=== PATIENT | male | born 1945 | race African-American/Black ===

== ENCOUNTER 2017-06-21 14:09 | Inpatient (IN) | payer MEDICARE, OTHER ==
[2017-06-21] MEDS ORDERED: NS 0.9% 1000 ML* 1,000 ML IV ONE (16:28)
[2017-06-21 16:55] LABS: Hematocrit 36 % (42-52); Hemoglobin 11.8 g/dl (14.0-18.0); Mean Corpuscular HGB Conc 33 g/dl (31-36); Mean Corpuscular Hemoglobin 31 pg (27-31); Mean Corpuscular Volume 91 fL (80-94); Mean Platelet Volume 9 um3 (7.4-10.4); Red Blood Count 3.88 10^6/ul (4.0-5.4); Red Cell Distribution Width 14 % (10.5-15); White Blood Count 9.6 10^3/ul (3.5-10.8)
[2017-06-21 17:00] LABS: Urine Bacteria Absent (Absent); Urine Bilirubin Negative (Negative); Urine Glucose 1+(50 mg/dL) (Negative); Urine Nitrite Negative (Negative)
[2017-06-21 17:11] LABS: Albumin 3.6 g/dL (3.2-5.2); BUN/Creatinine Ratio 10.3 (8-20); C Reactive Protein 64.5 mg/L (< 5.00); Calcium 9.7 mg/dL (8.6-10.3); EGFR African American 66.1 (>60); EGFR Non-African American 51.4 (>60); Globulin 3.5 g/dL (2-4); Magnesium 2.2 mg/dL (1.9-2.7); Potassium 3.6 mmol/L (3.5-5.0); Total Bilirubin 0.5 mg/dL (0.2-1.0); Total Protein 7.1 g/dL (6.4-8.9)
[2017-06-21 17:12] LABS: Troponin I 0.01 ng/mL (<0.04)
[2017-06-21 17:40] LABS: TSH (Thyroid Stimulating Horm) 2.04 mcIU/mL (0.34-5.60)
[2017-06-21] MEDS ORDERED: Iodixanol* (CONTRAST) 320 MG/ML 100 ML SDV IV ONE (17:50)
--- NOTE | 2017-06-21 18:49 | ED ---
Lisa Atwood Edward, scribed for Jian Rothman MD on 06/21/17 at 1637 . Abdominal Pain/Male - HPI Summary HPI Summary: 71 y/o male presents to ED c/o ABD pain starting yesterday. The pain is located in the suprapubic region and the LUQ. It is described as a burning pain and rated mild in severity. The pain is aggravated when he tries to move his bowels. Associated sx: slight nausea, mild CP in the epigastric region described as a burning sensation. Pt also c/o constipation for the past 3-4 days and had small amounts of diarrhea yesterday and this morning. Denies SOB, back pain, fevers/chills. SHx hip replacement, knee replacement. PMHx HTN, DM, GERD, pancreatitis. - History of Current Complaint Chief Complaint: EDAbdPain Stated Complaint: ABD PAIN/CONSTIPATION 3-4 DAYS Time Seen by Provider: 06/21/17 16:28 Hx Obtained From: Patient Onset/Duration: Lasting Days - Yesterday, Still Present Severity Currently: Mild Pain Intensity: 5 Pain Scale Used: 0-10 Numeric Location: Discrete At: LUQ, Suprapubic Character: Burning Aggravating Factor(s): Other: - Bowel movements Associated Signs And Symptoms: Positive: Chest Pain, Constipation, Nausea, Diarrhea. Negative: Other - No SOB - Allergies/Home Medications Allergies/Adverse Reactions: Allergies Allergy/AdvReac Type Severity Reaction Status Date / Time Oxycodone [From Percocet] Allergy Itching Verified 06/21/17 16:54 PMH/Surg Hx/FS Hx/Imm Hx Previously Healthy: No Endocrine/Hematology History: Reports: Hx Diabetes Cardiovascular History: Reports: Hx Hypertension GI History: Reports: Other GI Disorders - Pancreatitis - Surgical History Surgery Procedure, Year, and Place: Hip replacement, knee replacement, rotator cuff repair Infectious Disease History: Denies: Traveled Outside the [place] in Last 30 Days - Family History Known Family History: Negative: Cardiac Disease, Hypertension, Diabetes - Social History Occupation: Retired Lives: With Family Alcohol Use: None Hx Substance Use: No Substance Use Type: Reports: None Hx Tobacco Use: Yes Smoking Status (MU): Former Smoker Type: Cigarettes Review of Systems Constitutional: Negative Eyes: Negative ENT: Negative Positive: Chest Pain Respiratory: Negative Negative: Shortness Of Breath Positive: Abdominal Pain, Diarrhea, Nausea, Other - Constipation Genitourinary: Negative Musculoskeletal: Negative Skin: Negative Neurological: Negative Psychological: Normal All Other Systems Reviewed And Are Negative: Yes Physical Exam Triage Information Reviewed: Yes Vital Signs On Initial Exam: Initial Vitals Temp Pulse Resp BP Pulse Ox 98.5 F 95 20 193/89 97 06/21/17 14:21 06/21/17 14:21 06/21/17 14:21 06/21/17 14:21 06/21/17 14:21 Vital Signs Reviewed: Yes Appearance: Positive: Well-Appearing, No Pain Distress Skin: Positive: Warm, Skin Color Reflects Adequate Perfusion, Dry Head/Face: Positive: Normal Head/Face Inspection Eyes: Positive: EOMI, MATT ENT: Positive: Normal ENT inspection Neck: Positive: Supple, Nontender Respiratory/Lung Sounds: Positive: Clear to Auscultation, Breath Sounds Present Cardiovascular: Positive: RRR Abdomen Description: Positive: Soft, Other: - Mild tenderness to palpation @ the lower ABD Bowel Sounds: Positive: Present Musculoskeletal: Positive: Normal, Strength/ROM Intact Neurological: Positive: Normal, Sensory/Motor Intact, Alert, Oriented to Person Place, Time Psychiatric: Positive: Normal, Affect/Mood Appropriate Diagnostics - Vital Signs Vital Signs Temp Pulse Resp BP Pulse Ox 06/21/17 14:21 98.5 F 95 20 193/89 97 - Laboratory Lab Results: Lab Results 06/21/17 06/21/17 06/21/17 Range/Units 16:02 16:40 16:40 WBC 9.6 (3.5-10.8) 10^3/ul RBC 3.88 L (4.0-5.4) 10^6/ul Hgb 11.8 L (14.0-18.0) g/dl Hct 36 L (42-52) % MCV 91 (80-94) fL MCH 31 (27-31) pg MCHC 33 (31-36) g/dl RDW 14 (10.5-15) % Plt Count 219 (150-450) 10^3/ul MPV 9 (7.4-10.4) um3 Neut % (Auto) 69.8 (38-83) % Lymph % (Auto) 21.2 L (25-47) % Wise % (Auto) 7.2 (1-9) % Eos % (Auto) 1.1 (0-6) % Baso % (Auto) 0.7 (0-2) % Absolute Neuts (auto) 6.7 (1.5-7.7) 10^3/ul Absolute Lymphs (auto) 2.0 (1.0-4.8) 10^3/ul Absolute Monos (auto) 0.7 (0-0.8) 10^3/ul Absolute Eos (auto) 0.1 (0-0.6) 10^3/ul Absolute Basos (auto) 0.1 (0-0.2) 10^3/ul Absolute Nucleated RBC 0.01 10^3/ul Nucleated RBC % 0.1 INR (Anticoag Therapy) 0.98 (0.89-1.11) APTT 31.2 (26.0-36.3) seconds Sodium (133-145) mmol/L Potassium (3.5-5.0) mmol/L Chloride (101-111) mmol/L Carbon Dioxide (22-32) mmol/L Anion Gap (2-11) mmol/L BUN (6-24) mg/dL Creatinine (0.67-1.17) mg/dL Est GFR ( Amer) (>60) Est GFR (Non-Af Amer) (>60) BUN/Creatinine Ratio (8-20) Glucose (70-100) mg/dL Lactic Acid (0.5-2.0) mmol/L Calcium (8.6-10.3) mg/dL Magnesium (1.9-2.7) mg/dL Total Bilirubin (0.2-1.0) mg/dL AST (13-39) U/L ALT (7-52) U/L Alkaline Phosphatase (34-104) U/L Troponin I (<0.04) ng/mL C-Reactive Protein (< 5.00) mg/L B-Natriuretic Peptide ( - 100) pg/mL Total Protein (6.4-8.9) g/dL Albumin (3.2-5.2) g/dL Globulin (2-4) g/dL Albumin/Globulin Ratio (1-3) Lipase (11.0-82.0) U/L TSH (0.34-5.60) mcIU/mL Urine Color Yellow Urine Appearance Clear Urine pH 7.0 (5-9) Ur Specific Rose 1.018 (1.010-1.030) Urine Protein 3+(>=500 mg/dl) H (Negative) Urine Ketones Negative (Negative) Urine Blood Negative (Negative) Urine Nitrate Negative (Negative) Urine Bilirubin Negative (Negative) Urine Urobilinogen Negative (Negative) Ur Leukocyte Esterase Negative (Negative) Urine WBC (Auto) Trace(0-5/hpf) (Absent) Urine RBC (Auto) 1+(3-5/hpf) H (Absent) Ur Squamous Epith Cells Present H (Absent) Urine Bacteria Absent (Absent) Hyaline Casts Present H (Absent) Urine Glucose 1+(50 mg/dl) H (Negative) Urine Ascorbic Acid * H (Negative) 06/21/17 06/21/17 06/21/17 Range/Units 16:40 16:40 16:40 WBC (3.5-10.8) 10^3/ul RBC (4.0-5.4) 10^6/ul Hgb (14.0-18.0) g/dl Hct (42-52) % MCV (80-94) fL MCH (27-31) pg MCHC (31-36) g/dl RDW (10.5-15) % Plt Count (150-450) 10^3/ul MPV (7.4-10.4) um3 Neut % (Auto) (38-83) % Lymph % (Auto) (25-47) % Wise % (Auto) (1-9) % Eos % (Auto) (0-6) % Baso % (Auto) (0-2) % Absolute Neuts (auto) (1.5-7.7) 10^3/ul Absolute Lymphs (auto) (1.0-4.8) 10^3/ul Absolute Monos (auto) (0-0.8) 10^3/ul Absolute Eos (auto) (0-0.6) 10^3/ul Absolute Basos (auto) (0-0.2) 10^3/ul Absolute Nucleated RBC 10^3/ul Nucleated RBC % INR (Anticoag Therapy) (0.89-1.11) APTT (26.0-36.3) seconds Sodium 135 (133-145) mmol/L Potassium 3.6 (3.5-5.0) mmol/L Chloride 98 L (101-111) mmol/L Carbon Dioxide 30 (22-32) mmol/L Anion Gap 7 (2-11) mmol/L BUN 14 (6-24) mg/dL Creatinine 1.36 H (0.67-1.17) mg/dL Est GFR ( Amer) 66.1 (>60) Est GFR (Non-Af Amer) 51.4 (>60) BUN/Creatinine Ratio 10.3 (8-20) Glucose 271 H (70-100) mg/dL Lactic Acid 1.2 (0.5-2.0) mmol/L Calcium 9.7 (8.6-10.3) mg/dL Magnesium 2.2 (1.9-2.7) mg/dL Total Bilirubin 0.50 (0.2-1.0) mg/dL AST 10 L (13-39) U/L ALT 8 (7-52) U/L Alkaline Phosphatase 85 (34-104) U/L Troponin I 0.01 (<0.04) ng/mL C-Reactive Protein 64.50 H (< 5.00) mg/L B-Natriuretic Peptide 43 ( - 100) pg/mL Total Protein 7.1 (6.4-8.9) g/dL Albumin 3.6 (3.2-5.2) g/dL Globulin 3.5 (2-4) g/dL Albumin/Globulin Ratio 1.0 (1-3) Lipase 647 H (11.0-82.0) U/L TSH 2.04 (0.34-5.60) mcIU/mL Urine Color Urine Appearance Urine pH (5-9) Ur Specific Rose (1.010-1.030) Urine Protein (Negative) Urine Ketones (Negative) Urine Blood (Negative) Urine Nitrate (Negative) Urine Bilirubin (Negative) Urine Urobilinogen (Negative) Ur Leukocyte Esterase (Negative) Urine WBC (Auto) (Absent) Urine RBC (Auto) (Absent) Ur Squamous Epith Cells (Absent) Urine Bacteria (Absent) Hyaline Casts (Absent) Urine Glucose (Negative) Urine Ascorbic Acid (Negative) Result Diagrams: 06/21/17 16:40 06/21/17 16:40 Lab Statement: Any lab studies that have been ordered have been reviewed, and results considered in the medical decision making process. Abdominal Pain Fem Course/Dx - Course Course Of Treatment: CT RESULTS/DISPOSITION PENDING AT SHIFT CHANGE. NO CRITICAL CARE TIME. - Diagnoses Provider Diagnoses: Pancreatitis, Abdominal pain, Chest pain Discharge - Discharge Plan Condition: Stable Disposition: OTHER Discharge Disposition Comment: Sign out to Dr. Jay Knight at shift change pending CT results Referrals: See Cruz MD [Primary Care Provider] - The documentation as recorded by the Lisa thompson Edward accurately reflects the service I personally performed and the decisions made by me, Jian Rothman MD.
--- NOTE | 2017-06-21 19:29 | RAD ---
INDICATION: Chest and abdominal and pelvic pain. History of pancreatitis. COMPARISON: None TECHNIQUE: Axial source images were obtained from the thoracic inlet to the symphysis pubis following administration of oral and intravenous contrast. CT angiographic technique of the chest was performed for the chest portion of the examination. X cc of contrast was utilized. Coronal and sagittal reconstructed images were acquired. CHEST FINDINGS: Neck/thyroid: The visualized neck to include the thyroid appear normal. Chest wall: There are no acute abnormalities of the bony thorax or chest wall. There is no supraclavicular, infraclavicular, or axillary lymphadenopathy. Lungs : There are no pulmonary parenchymal masses or infiltrates. There is minor gravity dependent atelectasis in the lung bases The pulmonary interstitium appears normal. There are no endobronchial lesions. Cardiomediastinal structures: The heart is normal in size. There is no pericardial effusion. There is no evidence of aortic aneurysm or dissection. There is mildly suboptimal opacification of pulmonary arterial tree. No central pulmonary emboli are seen. There is no mediastinal or hilar adenopathy. The esophagus appears normal. Pleura : There are no pleural-based masses or effusions. ABDOMINAL/PELVIC FINDINGS: Liver: The liver is mildly enlarged with findings of hepatic steatosis. There are no masses. There is no ductal dilatation. Gallbladder: There are no calcified gallstones. There is no evidence of wall thickening or pericholecystic fluid. Spleen: The spleen is normal in size. There are no masses. Pancreas: Pancreas appears edematous and there is peripancreatic stranding. The findings are believed to be secondary to acute pancreatitis. Adrenal glands: The right adrenal gland is normal. There is presumed left adrenal hyperplasia with one or 2 tiny areas of nodularity measuring approximately 1.2 cm each. Kidneys: The kidneys are normal in size and position. There are prompt nephrograms and there is prompt excretion bilaterally. There are multiple low-density renal lesions which is meniscal bases likely represent renal cysts. The largest of these measures up to 2.8 cm and is located in the lower pole of the left kidney. There is no evidence of nephrolithiasis. Adenopathy: There is no evidence of adenopathy by size criteria. Fluid collections: Peripancreatic edema. There is also mild, bilateral, perinephric stranding.. Vessels:There are mild atherosclerotic changes of the aorta. There is no focal aneurysm. The IVC is unremarkable GI tract: There are no acute CT bowel findings. There is no obstruction. The stomach and small bowel appear normal. The lower GI tract is normal. The cecum, ileocecal valve, and terminal ileum appear normal. The appendix is visualized and appear normal. Pelvic organs: Limited evaluation due to beam hardening artifact from left hip arthroplasty Bladder: Limited evaluation due to beam hardening artifact from left hip arthroplasty. Abdominal and pelvic soft tissues: The extraperitoneal abdominal and pelvic soft tissues appear normal.. Osseous structures: There are no acute osseous findings. There is spondylitic change of the mid lumbar spine IMPRESSION: 1. Suboptimal opacification of the pulmonary arterial tree. No central pulmonary emboli. 2. Edematous appearing pancreas with peripancreatic stranding consistent with acute pancreatitis. 3. Probable left adrenal hyperplasia with small cysts or adenomas. 4. Bilateral renal cortical cysts. 5. Left hip arthroplasty.
[2017-06-21] MEDS ORDERED: Morphine INJ* 2 MG/ML 1 ML SYRINGE IV PRN (20:20)
[2017-06-21] MEDS ORDERED: Polyethylene Glycol 3350* 17 GM PACKET PO PRN (20:20)
[2017-06-21] MEDS ORDERED: Dextrose 50% Syringe 50 ML* 25 GM/50 ML SYRINGE IV PUSH PRN (20:26)
[2017-06-21] MEDS ORDERED: NS 0.9% 1000 ML* 1,000 ML IV SCH (20:30)
[2017-06-21] MEDS: Tamsulosin CAP* 0.4 MG PO SCH (22:27)
[2017-06-21] MEDS: cloNIDine TAB* 0.1 MG PO SCH (22:28)
[2017-06-21] MEDS: Gabapentin CAP(*) 300 MG PO SCH (22:28)
[2017-06-21] MEDS: Heparin VIAL(*) 5000 UNITS/ML VIAL (FIVE THOUSAND) SUBCUT SCH (22:28)
[2017-06-21] MEDS: Insulin LISPRO* 1 UNITS UNIT SUBCUT SCH (22:28)
--- NOTE | 2017-06-21 23:18 | HP ---
CC: Dr. Foster * HISTORY AND PHYSICAL: DATE OF ADMISSION: 06/21/17 PRIMARY CARE PROVIDER: Dr. Foster. CHIEF COMPLAINT: Abdominal pain. HISTORY OF PRESENT ILLNESS: Mr. Matthews is a 71-year-old male, who states for the last 4 to 5 days, he has been having abdominal pain. The patient describes having pain in the epigastric and center of his chest area. He describes this as a burning discomfort. He additionally has more severe pain that he is unable to describe in the left lateral portion of his abdomen and low in the pelvis. The patient states that in addition to the pain, he has felt incredibly constipated. He states that this morning and yesterday, he had a small amount of liquid stool, but no regular bowel movement for several days. The patient rates the pain an 8/10. He states this is similar to when he had pancreatitis approximately 15 to 20 years ago. The patient states that nothing makes the pain any better or worse. In terms of the constipation, he has tried prune juice, magnesium citrate, and Colace without any success. PAST MEDICAL HISTORY: 1. Type 2 diabetes. 2. Hypertension. 3. Gout. 4. History of pancreatitis several years ago. 5. Diabetic neuropathy. 6. BPH. PAST SURGICAL HISTORY: 1. Left total hip replacement. 2. Right shoulder surgery. 3. Cyst removal off the forehead. 4. Left knee meniscus surgery. 5. Right total knee replacement. MEDICATIONS: 1. Metformin 1000 mg p.o. twice daily. 2. Clonidine 0.1 mg p.o. q.h.s. 3. Indapamide 5 mg p.o. daily. 4. Vasotec 40 mg p.o. daily. 5. Atenolol 25 mg p.o. daily. 6. Allopurinol 300 mg p.o. daily. 7. Glipizide 5 mg p.o. twice daily. 8. Lantus 74 units subcutaneous daily. 9. Potassium chloride 10 mEq p.o. twice daily. 10. Gabapentin 300 mg p.o. q.h.s. 11. Bumex 1 mg p.o. daily. 12. Flomax 0.4 mg p.o. q.h.s. 13. Prilosec 20 mg p.o. daily. 14. Aspirin 81 mg p.o. daily. 15. Multivitamin 1 tab p.o. daily. 16. Vitamin C 1000 mg p.o. daily. 17. Garlic 1000 mg p.o. daily. 18. Iron 480 mg p.o. daily. ALLERGIES: PERCOCET. FAMILY HISTORY: Mom at the age of 61 of an ME. Dad at the age of 71 and his cause of his is unknown. SOCIAL HISTORY: The patient is a former smoker with a 65-wmne-lphy history of smoking. He quit in 1977. He denies any alcohol use. He is a retired public health worker. He is . He has 5 children. His , Idalia, is his healthcare proxy. REVIEW OF SYSTEMS: The patient denies any fevers or chills. He initially states that his appetite is fine; however, his then chimes in and states that he has only had some spinach yesterday, nothing really today. He admits to the burning epigastric/chest discomfort. He has chronic lower extremity edema, right being worse than the left. He has no cough, no shortness of breath , no nausea or vomiting. He has abdominal pain as above, constipation as above. No hematochezia. No dysuria. No focal weakness. No sensory loss. No sudden changes in vision. No dysphagia. No joint pains or muscle pains out of the ordinary. He states that he thinks he has a rash on his low back. No anxiety or depression. PHYSICAL EXAMINATION GENERAL: The patient is a well-developed, obese, elderly male, sitting in the stretcher, in no acute distress. VITAL SIGNS: Blood pressure 161/86, pulse 86, respirations 23, temp 98.2, O2 sat 95% on room air. HEENT: Pupils are approximately 2 mm, they are round, there is arcus senilis. Extraocular muscles are intact. Oropharynx is clear. Oral mucosa is moist. There is some brown discoloration of the patient's tongue. NECK: There is no submandibular, cervical, or supraclavicular adenopathy. Thyroid is not enlarged. No thyroid nodules are noted. PULMONARY: Lungs are clear to auscultation bilaterally. CARDIAC: Normal S1 and S2. Regular rate and rhythm. I do not appreciate any murmurs. ABDOMEN: Bowel sounds present. Abdomen is soft, nontender, nondistended, is obese. EXTREMITIES: There is marked 3 to 4+ edema of the right lower extremity and 2 to 3+ edema of the left lower extremity. There is full active range of motion of the all 4 extremities. MUSCULOSKELETAL: There is no cyanosis or clubbing of the digits. NEURO: Cranial nerves II through XII are grossly intact. Sensation is intact to light touch throughout. Strength is 5/5 and symmetric in both upper and lower extremities bilaterally. PSYCH: The patient is alert. He is oriented x3. Affect appears appropriate. SKIN: Warm and dry. There are no rashes. The patient has shallow ulceration of the bilateral shins without any surrounding erythema. There is no rash noted to the low back. DIAGNOSTIC STUDIES/LAB DATA: WBC 9.6, hemoglobin 11.8, hematocrit 36, platelets 219. INR 0.98. Sodium 135, potassium 3.6, chloride 98, CO2 is 30, BUN 14, creatinine 1.36, glucose 271, lactic acid 1.2, calcium 9.7, magnesium 2.2. Bilirubin 0.58, AST 10, ALT 8, alk phos . Troponin 0.01. CRP 64.5. BNP 43. Albumin 3.6. Lipase 647. TSH 2.04. Urinalysis revealed a specific gravity of 1.018, 3+ protein, 1+ rbc, hyaline casts are also noted. CT abdomen and pelvis reveals no central pulmonary emboli noted. An edematous appearing pancreas, peripancreatic stranding consistent with acute pancreatitis , probable left adrenal hyperplasia with small cysts or adenomas. Bilateral renal cortical cysts and left hip arthroplasty is noted. ASSESSMENT AND PLAN: Mr. Matthews is a 71-year-old male with a history of type 2 diabetes, diabetic neuropathy, hypertension, and benign prostatic hyperplasia, who presents to the emergency room with complaints of 4 to 5 days' worth of abdominal pain and constipation, is found to have acute pancreatitis. 1. Acute pancreatitis. The patient will be placed on clear liquid diet. He will receive IV fluid hydration with normal saline running at 100 mL per hour. Gallbladder ultrasound will be obtained. It is unclear what has caused his pancreatitis. 2. Constipation. The patient states that he has been very constipated over the last several days. His last bowel movements were liquid in nature. He will receive a dose of lactulose to see if this helps with bowel movement. He will have MiraLAX also available. 3. Hypertension. The patient's blood pressure is moderately elevated at this time. He does take clonidine in the evening and he will be receiving this very soon. The patient's blood pressure for now will be monitored. He will otherwise be continued on his usual home medication regimen. 4. Type 2 diabetes. The patient's metformin and glipizide will be held at this time. He will continue on Lantus, so I am going to reduce the Lantus dose to 50 units q.a.m. while he is only on a clear liquid diet. Lispro sliding scale will also be added. The patient's last hemoglobin A1c in our system was January 2016 and good at 5.8%. I will add on A1c to the labs drawn in the ER. 5. Benign prostatic hyperplasia. The patient will continue on his Flomax. 6. Diabetic neuropathy. The patient will continue on his usual dose of gabapentin. 7. DVT prophylaxis. According to the Adult Thrombosis Prophylaxis Risk Factor Assessment Guide, the patient has a total risk factor score of 4, making him high risk. He will be placed on heparin 5000 units subcutaneous q.8 hours. 8. Code status is DNR. Again, the patient indicates that his is his healthcare proxy. TIME SPENT: Sixty-five minutes was spent admitting this patient. [id number]/[facility] #: [id number] RENNY
[2017-06-22] MEDS ORDERED: Atenolol TAB* 25 MG PO ONE (05:00)
[2017-06-22] MEDS: Heparin VIAL(*) 5000 UNITS/ML VIAL (FIVE THOUSAND) SUBCUT SCH ×3 (05:27→22:50)
[2017-06-22 06:39] LABS: Hematocrit 32 % (42-52); Hemoglobin 10.9 g/dl (14.0-18.0); Mean Corpuscular HGB Conc 34 g/dl (31-36); Mean Corpuscular Hemoglobin 31 pg (27-31); Mean Corpuscular Volume 91 fL (80-94); Mean Platelet Volume 9 um3 (7.4-10.4); Red Blood Count 3.53 10^6/ul (4.0-5.4); Red Cell Distribution Width 14 % (10.5-15); White Blood Count 8.9 10^3/ul (3.5-10.8)
[2017-06-22 06:56] LABS: BUN/Creatinine Ratio 9.1 (8-20); Calcium 9.4 mg/dL (8.6-10.3); EGFR African American 75.6 (>60); EGFR Non-African American 58.8 (>60); Potassium 3.4 mmol/L (3.5-5.0)
[2017-06-22] MEDS: Omeprazole CAP* 20 MG PO SCH (08:03)
--- NOTE | 2017-06-22 08:55 | RAD ---
INDICATION: Pancreatitis COMPARISON: CT abdomen pelvis June 21, 2017 TECHNIQUE: Longitudinal and transverse scans of the right upper quadrant were obtained. Doppler interrogation of the hepatic and portal venous system was performed. FINDINGS: Liver: There is hepatomegaly with hepatic steatosis. There are no masses . The liver measures 19.3 cm in cephalocaudal dimension. Vessels: There is normal hepatic and portal venous flow. Bile ducts: There is no evidence of intrahepatic or extrahepatic ductal dilatation. The common duct measures 0.4 cm. Gallbladder: The sonographic appearance of the gallbladder is normal. There is no evidence of cholelithiasis, thickening of the gallbladder wall, or pericholecystic fluid. Pancreas: The visualized pancreas appears normal Right kidney: The right kidney is normal in size and echogenicity. There are no calculi. There is a lower pole right renal cyst measuring 1.9 x 1.4 x 1.6 cm, and a midpole cyst measuring 2.2 x 1.7 x 1.8 cm There is no evidence of hydronephrosis. The right kidney measures 10.6 was 6.1 x 6.3 cm. IVC and aorta: The aorta and superior vena cava appear normal. Fluid: There is no ascites. Other: None. IMPRESSION: 1. HEPATOMEGALY WITH HEPATIC STEATOSIS. 2. NORMAL SONOGRAPHIC APPEARANCE OF THE THE GALLBLADDER. 3. BILATERAL RENAL CYSTS.
[2017-06-22] MEDS: Ondansetron INJ* 2 MG/ML VIAL IV PRN ×2 (09:08→13:17)
[2017-06-22] MEDS: Insulin GLARGINE(*) 1 UNITS UNIT SUBCUT SCH (09:13)
[2017-06-22] MEDS: Insulin LISPRO* 1 UNITS UNIT SUBCUT SCH ×3 (09:14→18:10)
[2017-06-22] MEDS: Multivitamins/Minerals TAB PO SCH (09:16)
[2017-06-22] MEDS: Allopurinol TAB* 300 MG PO SCH (09:16)
[2017-06-22] MEDS: Enalapril TAB* 20 MG PO SCH (09:16)
[2017-06-22] MEDS: Aspirin Low Dose CHEW TAB* 81 MG PO SCH (09:16)
[2017-06-22] MEDS: Potassium Chlor TAB* 20 MEQ TAB.ER PO SCH ×2 (09:17→22:50)
[2017-06-22] MEDS ORDERED: Ondansetron INJ* 2 MG/ML VIAL IV PRN (13:12)
--- NOTE | 2017-06-22 13:15 | RAD ---
Indication: Abdominal pain. Pancreatitis. Assess for obstruction. Comparison: June 21, 2017 CT. Technique: Supine view of the abdomen. Report: Unremarkable bowel gas pattern. Residual enteric contrast and minimal stool noted in the colon. Negative for suspicious calcifications. Unremarkable soft tissue contours. LEFT total hip prosthesis. 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 IMPRESSION: No evidence for bowel obstruction or ileus.
[2017-06-22] MEDS: Acetaminophen TAB* 325 MG PO PRN (13:28)
--- NOTE | 2017-06-22 13:43 | PN ---
Subjective Date of Service: 06/22/17 Interval History: Patient seen and examined at bedside. Mr. Matthews reports nausea this morning as well as increased bad pain that radiates up into his chest following some broth and jello this AM. He denies SOB, jaw pain, neck or back pain, diaphoresis. He reports having loose stools, with his last normal, formed stool occurring last Thursday. Family History: Unchanged from Admission Social History: Unchanged from Admission Past Medical History: Unchanged from Admission Objective Active Medications: Acetaminophen (Tylenol Tab*) 650 mg PO Q4H PRN PRN Reason: PAIN Last Admin: 06/22/17 13:28 Dose: 650 mg Allopurinol (Zyloprim Tab*) 300 mg PO DAILY [facility] Last Admin: 06/22/17 09:16 Dose: 300 mg Aspirin (Aspirin Low Dose Tab*) 81 mg PO DAILY [facility] Last Admin: 06/22/17 09:16 Dose: 81 mg Atenolol (Tenormin Tab*) 25 mg PO DAILY [facility] Clonidine HCl (Catapres Tab*) 0.1 mg PO BEDTIME [facility] Last Admin: 06/21/17 22:28 Dose: 0.1 mg Dextrose (D50w Syringe 50 Ml*) 12.5 gm IV PUSH .FOR FS < 60 - SS PRN PRN Reason: FS < 60 Enalapril Maleate (Vasotec Tab*) 40 mg PO DAILY [facility] Last Admin: 06/22/17 09:16 Dose: 40 mg Gabapentin (Neurontin Cap(*)) 300 mg PO BEDTIME [facility] Last Admin: 06/21/17 22:28 Dose: 300 mg Heparin Sodium (Porcine) (Heparin Vial(*)) 5,000 units SUBCUT Q8HR [facility] Last Admin: 06/22/17 13:17 Dose: 5,000 units Sodium Chloride (Ns 0.9% 1000 Ml*) 1,000 mls @ 100 mls/hr IV PER RATE [facility] Last Admin: 06/21/17 22:11 Dose: 100 mls/hr Insulin Glargine (Lantus(*)) 50 units SUBCUT QAM [facility] Last Admin: 06/22/17 09:13 Dose: 50 units Insulin Human Lispro (Humalog*) 0 units SUBCUT ACHS [facility] PRN Reason: Protocol Last Admin: 06/22/17 13:18 Dose: 3 units Morphine Sulfate (Morphine Inj (Syringe)*) 2 mg IV Q4H PRN PRN Reason: PAIN - MILD Multivitamins/Minerals (Theragran/Minerals Tab*) 1 tab PO DAILY [facility] Last Admin: 06/22/17 09:16 Dose: 1 tab Omeprazole (Prilosec Cap*) 20 mg PO DAILY@0730 [facility] Last Admin: 06/22/17 08:03 Dose: 20 mg Ondansetron HCl (Zofran Inj*) 4 mg IV Q4H PRN PRN Reason: NAUSEA Last Admin: 06/22/17 13:19 Dose: 4 mg Polyethylene Glycol/Electrolytes (Miralax*) 17 gm PO DAILY PRN PRN Reason: CONSTIPATION Last Admin: 06/21/17 22:26 Dose: 17 gm Potassium Chloride (Klor Con Er Tab*) 20 meq PO BID [facility] Last Admin: 06/22/17 09:17 Dose: 20 meq Tamsulosin HCl (Flomax Cap*) 0.4 mg PO BEDTIME [facility] Last Admin: 06/21/17 22:27 Dose: 0.4 mg Vital Signs 06/22/17 11:28 Temperature 98.3 F Pulse Rate 79 Respiratory 16 Rate Blood Pressure 136/80 (mmHg) O2 Sat by Pulse 97 Oximetry Oxygen Devices in Use Now: None Appearance: Male patient, lying in bed, NAD Eyes: No Scleral Icterus Ears/Nose/Mouth/Throat: Clear Oropharnyx, Mucous Membranes Moist Neck: NL Appearance and Movements; NL JVP Respiratory: Symmetrical Chest Expansion and Respiratory Effort, Clear to Auscultation Cardiovascular: NL Sounds; No Murmurs; No JVD, RRR Abdominal: NL Sounds; No Tenderness; No Distention Extremities: No Clubbing, Cyanosis, - - 2+ pitting edema to RLE, 3+ pitting edema to LLE Skin: - - shallow ulcerations to bilateral shins with no drainage or surrounding erythema Neurological: Alert and Oriented x 3, NL Muscle Strength and Tone Lines/Tubes/Other Access: Clean, Dry and Intact Peripheral IV Result Diagrams: 06/22/17 05:44 06/22/17 05:43 Additional Lab and Data: Lab Results 06/21/17 06/21/17 06/21/17 Range/Units 16:02 16:40 16:40 WBC 9.6 (3.5-10.8) 10^3/ul RBC 3.88 L (4.0-5.4) 10^6/ul Hgb 11.8 L (14.0-18.0) g/dl Hct 36 L (42-52) % MCV 91 (80-94) fL MCH 31 (27-31) pg MCHC 33 (31-36) g/dl RDW 14 (10.5-15) % Plt Count 219 (150-450) 10^3/ul MPV 9 (7.4-10.4) um3 Neut % (Auto) 69.8 (38-83) % Lymph % (Auto) 21.2 L (25-47) % [place] % (Auto) 7.2 (1-9) % Eos % (Auto) 1.1 (0-6) % Baso % (Auto) 0.7 (0-2) % Absolute Neuts (auto) 6.7 (1.5-7.7) 10^3/ul Absolute Lymphs (auto) 2.0 (1.0-4.8) 10^3/ul Absolute Monos (auto) 0.7 (0-0.8) 10^3/ul Absolute Eos (auto) 0.1 (0-0.6) 10^3/ul Absolute Basos (auto) 0.1 (0-0.2) 10^3/ul Absolute Nucleated RBC 0.01 10^3/ul Nucleated RBC % 0.1 INR (Anticoag Therapy) 0.98 (0.89-1.11) APTT 31.2 (26.0-36.3) seconds Sodium (133-145) mmol/L Potassium (3.5-5.0) mmol/L Chloride (101-111) mmol/L Carbon Dioxide (22-32) mmol/L Anion Gap (2-11) mmol/L BUN (6-24) mg/dL Creatinine (0.67-1.17) mg/dL Est GFR ( Amer) (>60) Est GFR (Non-Af Amer) (>60) BUN/Creatinine Ratio (8-20) Glucose (70-100) mg/dL Lactic Acid (0.5-2.0) mmol/L Calcium (8.6-10.3) mg/dL Magnesium (1.9-2.7) mg/dL Total Bilirubin (0.2-1.0) mg/dL AST (13-39) U/L ALT (7-52) U/L Alkaline Phosphatase (34-104) U/L Troponin I (<0.04) ng/mL C-Reactive Protein (< 5.00) mg/L B-Natriuretic Peptide ( - 100) pg/mL Total Protein (6.4-8.9) g/dL Albumin (3.2-5.2) g/dL Globulin (2-4) g/dL Albumin/Globulin Ratio (1-3) Lipase (11.0-82.0) U/L TSH (0.34-5.60) mcIU/mL Urine Color Yellow Urine Appearance Clear Urine pH 7.0 (5-9) Ur Specific [place] 1.018 (1.010-1.030) Urine Protein 3+(>=500 mg/dl) H (Negative) Urine Ketones Negative (Negative) Urine Blood Negative (Negative) Urine Nitrate Negative (Negative) Urine Bilirubin Negative (Negative) Urine Urobilinogen Negative (Negative) Ur Leukocyte Esterase Negative (Negative) Urine WBC (Auto) Trace(0-5/hpf) (Absent) Urine RBC (Auto) 1+(3-5/hpf) H (Absent) Ur Squamous Epith Cells Present H (Absent) Urine Bacteria Absent (Absent) Hyaline Casts Present H (Absent) Urine Glucose 1+(50 mg/dl) H (Negative) Urine Ascorbic Acid * H (Negative) 06/21/17 06/21/17 06/21/17 Range/Units 16:40 16:40 16:40 WBC (3.5-10.8) 10^3/ul RBC (4.0-5.4) 10^6/ul Hgb (14.0-18.0) g/dl Hct (42-52) % MCV (80-94) fL MCH (27-31) pg MCHC (31-36) g/dl RDW (10.5-15) % Plt Count (150-450) 10^3/ul MPV (7.4-10.4) um3 Neut % (Auto) (38-83) % Lymph % (Auto) (25-47) % [place] % (Auto) (1-9) % Eos % (Auto) (0-6) % Baso % (Auto) (0-2) % Absolute Neuts (auto) (1.5-7.7) 10^3/ul Absolute Lymphs (auto) (1.0-4.8) 10^3/ul Absolute Monos (auto) (0-0.8) 10^3/ul Absolute Eos (auto) (0-0.6) 10^3/ul Absolute Basos (auto) (0-0.2) 10^3/ul Absolute Nucleated RBC 10^3/ul Nucleated RBC % INR (Anticoag Therapy) (0.89-1.11) APTT (26.0-36.3) seconds Sodium 135 (133-145) mmol/L Potassium 3.6 (3.5-5.0) mmol/L Chloride 98 L (101-111) mmol/L Carbon Dioxide 30 (22-32) mmol/L Anion Gap 7 (2-11) mmol/L BUN 14 (6-24) mg/dL Creatinine 1.36 H (0.67-1.17) mg/dL Est GFR ( Amer) 66.1 (>60) Est GFR (Non-Af Amer) 51.4 (>60) BUN/Creatinine Ratio 10.3 (8-20) Glucose 271 H (70-100) mg/dL Lactic Acid 1.2 (0.5-2.0) mmol/L Calcium 9.7 (8.6-10.3) mg/dL Magnesium 2.2 (1.9-2.7) mg/dL Total Bilirubin 0.50 (0.2-1.0) mg/dL AST 10 L (13-39) U/L ALT 8 (7-52) U/L Alkaline Phosphatase 85 (34-104) U/L Troponin I 0.01 (<0.04) ng/mL C-Reactive Protein 64.50 H (< 5.00) mg/L B-Natriuretic Peptide 43 ( - 100) pg/mL Total Protein 7.1 (6.4-8.9) g/dL Albumin 3.6 (3.2-5.2) g/dL Globulin 3.5 (2-4) g/dL Albumin/Globulin Ratio 1.0 (1-3) Lipase 647 H (11.0-82.0) U/L TSH 2.04 (0.34-5.60) mcIU/mL Urine Color Urine Appearance Urine pH (5-9) Ur Specific [place] (1.010-1.030) Urine Protein (Negative) Urine Ketones (Negative) Urine Blood (Negative) Urine Nitrate (Negative) Urine Bilirubin (Negative) Urine Urobilinogen (Negative) Ur Leukocyte Esterase (Negative) Urine WBC (Auto) (Absent) Urine RBC (Auto) (Absent) Ur Squamous Epith Cells (Absent) Urine Bacteria (Absent) Hyaline Casts (Absent) Urine Glucose (Negative) Urine Ascorbic Acid (Negative) Assess/Plan/Problems-Billing Assessment: Mr. Matthews is a 71 yo male with a PMH of DM2 with diabetic neuropathy, HTN, and BPH who presented to the ED on 06/21 with complaints of 4 to 5 days of abdominal pain and constipation that appears to be secondary to acute pancreatitis. - Patient Problems (1) Pancreatitis, acute Code(s): K85.90 - ACUTE PANCREATITIS WITHOUT NECROSIS OR INFECTION, UNSP Comment: Etiology unclear. Patient with previous hx of pancreatitis many years ago, also idiopathic. Pt denies ETOH, trauma, recent infection, recent NSAID use Continue IVF, change to sips of clear. If pain and nausea persist, resume NPO status. Gallbladder US negative for stones or obstruction (2) Constipation Code(s): K59.00 - CONSTIPATION, UNSPECIFIED Comment: Patient reports no formed BM for almost 1 week. Plan to check KUB for s/s of obstruction (though not seen on CT) Continue bowel regimen (3) HTN (hypertension) Code(s): I10 - ESSENTIAL (PRIMARY) HYPERTENSION Comment: Somewhat hypertensive, but improving Continue home atenolol, clonidine, enalapril (4) Type 2 diabetes mellitus Comment: Controlled Hgb A1c 7.2 Hold home metformin and glipizide Continue reduced dose Lantus (while on clears) Continue Lispro SSI Plan for referral to [facility] for further diabetes education (5) BPH (benign prostatic hyperplasia) Code(s): N40.0 - BENIGN PROSTATIC HYPERPLASIA WITHOUT LOWER URINRY TRACT SYMP Comment: Continue home tamsulosin. (6) Diabetic neuropathy Code(s): E11.40 - TYPE 2 DIABETES MELLITUS WITH DIABETIC NEUROPATHY, UNSP Comment: Continue home gabapentin. (7) Hx of gout Code(s): Z87.39 - PERSONAL HISTORY OF DISEASES OF THE MS SYS AND CONN TISS Comment: Continue allopurinol. (8) DVT prophylaxis Comment: SQ heparin Status and Disposition: OBV to inpatient admission. Anticipate LOS>2 days.
[2017-06-22] MEDS: Gabapentin CAP(*) 300 MG PO SCH (22:50)
[2017-06-22] MEDS: cloNIDine TAB* 0.1 MG PO SCH (22:50)
[2017-06-22] MEDS: Tamsulosin CAP* 0.4 MG PO SCH (22:50)
[2017-06-23 05:38] LABS: Hematocrit 32 % (42-52); Hemoglobin 10.9 g/dl (14.0-18.0); Mean Corpuscular HGB Conc 34 g/dl (31-36); Mean Corpuscular Hemoglobin 31 pg (27-31); Mean Corpuscular Volume 92 fL (80-94); Mean Platelet Volume 9 um3 (7.4-10.4); Red Blood Count 3.53 10^6/ul (4.0-5.4); Red Cell Distribution Width 14 % (10.5-15); White Blood Count 7.5 10^3/ul (3.5-10.8)
[2017-06-23 05:54] LABS: BUN/Creatinine Ratio 7.9 (8-20); Calcium 9.3 mg/dL (8.6-10.3); EGFR African American 64.4 (>60); EGFR Non-African American 50.1 (>60); Potassium 3.4 mmol/L (3.5-5.0)
[2017-06-23] MEDS: Heparin VIAL(*) 5000 UNITS/ML VIAL (FIVE THOUSAND) SUBCUT SCH ×3 (06:07→21:39)
[2017-06-23] MEDS: Omeprazole CAP* 20 MG PO SCH (07:27)
[2017-06-23] MEDS: Insulin LISPRO* 1 UNITS UNIT SUBCUT SCH ×4 (07:36→21:38)
[2017-06-23] MEDS: Insulin GLARGINE(*) 1 UNITS UNIT SUBCUT SCH (08:43)
[2017-06-23] MEDS: Aspirin Low Dose CHEW TAB* 81 MG PO SCH (09:33)
[2017-06-23] MEDS: Enalapril TAB* 20 MG PO SCH (09:33)
[2017-06-23] MEDS: Multivitamins/Minerals TAB PO SCH (09:33)
[2017-06-23] MEDS: Atenolol TAB* 25 MG PO SCH (09:33)
[2017-06-23] MEDS: Allopurinol TAB* 300 MG PO SCH (09:34)
[2017-06-23] MEDS: Potassium Chlor TAB* 20 MEQ TAB.ER PO SCH ×2 (09:34→21:09)
--- NOTE | 2017-06-23 09:52 | PN ---
Subjective Date of Service: 06/23/17 Interval History: Patient seen and examined at bedside. He still c/o constipation. Reports minimal abd pain. Patient feels hungry, denies n/v. Wants to try solid food. Denies fever/chills, chest pain, SOB. Family History: Unchanged from Admission Social History: Unchanged from Admission Past Medical History: Unchanged from Admission Objective Active Medications: Acetaminophen (Tylenol Tab*) 650 mg PO Q4H PRN PRN Reason: PAIN Last Admin: 06/22/17 13:28 Dose: 650 mg Allopurinol (Zyloprim Tab*) 300 mg PO DAILY [facility] Last Admin: 06/23/17 09:34 Dose: 300 mg Aspirin (Aspirin Low Dose Tab*) 81 mg PO DAILY [facility] Last Admin: 06/23/17 09:33 Dose: 81 mg Atenolol (Tenormin Tab*) 25 mg PO DAILY [facility] Last Admin: 06/23/17 09:33 Dose: 25 mg Clonidine HCl (Catapres Tab*) 0.1 mg PO BEDTIME [facility] Last Admin: 06/22/17 22:50 Dose: 0.1 mg Dextrose (D50w Syringe 50 Ml*) 12.5 gm IV PUSH .FOR FS < 60 - SS PRN PRN Reason: FS < 60 Enalapril Maleate (Vasotec Tab*) 40 mg PO DAILY [facility] Last Admin: 06/23/17 09:33 Dose: 40 mg Gabapentin (Neurontin Cap(*)) 300 mg PO BEDTIME [facility] Last Admin: 06/22/17 22:50 Dose: 300 mg Heparin Sodium (Porcine) (Heparin Vial(*)) 5,000 units SUBCUT Q8HR [facility] Last Admin: 06/23/17 06:07 Dose: 5,000 units Lactated Ringer's (Lactated Ringers 1000 Ml Bag*) 1,000 mls @ 125 mls/hr IV PER RATE [facility] Last Admin: 06/23/17 03:47 Dose: 125 mls/hr Insulin Glargine (Lantus(*)) 50 units SUBCUT QAM [facility] Last Admin: 06/23/17 08:43 Dose: Not Given Insulin Human Lispro (Humalog*) 0 units SUBCUT ACHS [facility] PRN Reason: Protocol Last Admin: 06/23/17 07:36 Dose: Not Given Morphine Sulfate (Morphine Inj (Syringe)*) 2 mg IV Q4H PRN PRN Reason: PAIN - MILD Multivitamins/Minerals (Theragran/Minerals Tab*) 1 tab PO DAILY [facility] Last Admin: 06/23/17 09:33 Dose: 1 tab Omeprazole (Prilosec Cap*) 20 mg PO DAILY@0730 [facility] Last Admin: 06/23/17 07:27 Dose: 20 mg Ondansetron HCl (Zofran Inj*) 4 mg IV Q4H PRN PRN Reason: NAUSEA Last Admin: 06/22/17 13:19 Dose: 4 mg Polyethylene Glycol/Electrolytes (Miralax*) 17 gm PO DAILY PRN PRN Reason: CONSTIPATION Last Admin: 06/21/17 22:26 Dose: 17 gm Potassium Chloride (Klor Con Er Tab*) 20 meq PO BID [facility] Last Admin: 06/23/17 09:34 Dose: 20 meq Tamsulosin HCl (Flomax Cap*) 0.4 mg PO BEDTIME [facility] Last Admin: 06/22/17 22:50 Dose: 0.4 mg Vital Signs 06/22/17 06/22/17 06/22/17 11:28 16:11 20:00 Temperature 98.3 F 98.3 F Pulse Rate 79 66 Respiratory 16 14 18 Rate Blood Pressure 136/80 154/68 (mmHg) O2 Sat by Pulse 97 99 Oximetry 06/22/17 06/22/17 06/22/17 20:12 22:50 23:21 Temperature 97.9 F 98.6 F Pulse Rate 71 62 Respiratory 15 18 18 Rate Blood Pressure 137/63 154/64 (mmHg) O2 Sat by Pulse 95 96 Oximetry 06/23/17 06/23/17 06/23/17 00:50 03:08 07:25 Temperature 98.5 F Pulse Rate 66 63 Respiratory 18 17 16 Rate Blood Pressure 154/68 158/77 (mmHg) O2 Sat by Pulse 94 97 Oximetry 06/23/17 07:38 Temperature Pulse Rate Respiratory 16 Rate Blood Pressure (mmHg) O2 Sat by Pulse Oximetry Oxygen Devices in Use Now: None Appearance: Male patient, lying in bed, NAD Eyes: No Scleral Icterus Ears/Nose/Mouth/Throat: Clear Oropharnyx, Mucous Membranes Moist Neck: NL Appearance and Movements; NL JVP Respiratory: Symmetrical Chest Expansion and Respiratory Effort, Clear to Auscultation Cardiovascular: NL Sounds; No Murmurs; No JVD, RRR Abdominal: NL Sounds; No Tenderness; No Distention Extremities: No Clubbing, Cyanosis, - - BLE edema, 1-2+ Neurological: Alert and Oriented x 3, NL Muscle Strength and Tone Lines/Tubes/Other Access: Clean, Dry and Intact Peripheral IV Nutrition: Taking PO's Result Diagrams: 06/23/17 05:20 06/23/17 05:20 Additional Lab and Data: Lab Results 06/21/17 06/21/17 06/21/17 Range/Units 16:02 16:40 16:40 WBC 9.6 (3.5-10.8) 10^3/ul RBC 3.88 L (4.0-5.4) 10^6/ul Hgb 11.8 L (14.0-18.0) g/dl Hct 36 L (42-52) % MCV 91 (80-94) fL MCH 31 (27-31) pg MCHC 33 (31-36) g/dl RDW 14 (10.5-15) % Plt Count 219 (150-450) 10^3/ul MPV 9 (7.4-10.4) um3 Neut % (Auto) 69.8 (38-83) % Lymph % (Auto) 21.2 L (25-47) % [place] % (Auto) 7.2 (1-9) % Eos % (Auto) 1.1 (0-6) % Baso % (Auto) 0.7 (0-2) % Absolute Neuts (auto) 6.7 (1.5-7.7) 10^3/ul Absolute Lymphs (auto) 2.0 (1.0-4.8) 10^3/ul Absolute Monos (auto) 0.7 (0-0.8) 10^3/ul Absolute Eos (auto) 0.1 (0-0.6) 10^3/ul Absolute Basos (auto) 0.1 (0-0.2) 10^3/ul Absolute Nucleated RBC 0.01 10^3/ul Nucleated RBC % 0.1 INR (Anticoag Therapy) 0.98 (0.89-1.11) APTT 31.2 (26.0-36.3) seconds Sodium (133-145) mmol/L Potassium (3.5-5.0) mmol/L Chloride (101-111) mmol/L Carbon Dioxide (22-32) mmol/L Anion Gap (2-11) mmol/L BUN (6-24) mg/dL Creatinine (0.67-1.17) mg/dL Est GFR ( Amer) (>60) Est GFR (Non-Af Amer) (>60) BUN/Creatinine Ratio (8-20) Glucose (70-100) mg/dL Lactic Acid (0.5-2.0) mmol/L Calcium (8.6-10.3) mg/dL Magnesium (1.9-2.7) mg/dL Total Bilirubin (0.2-1.0) mg/dL AST (13-39) U/L ALT (7-52) U/L Alkaline Phosphatase (34-104) U/L Troponin I (<0.04) ng/mL C-Reactive Protein (< 5.00) mg/L B-Natriuretic Peptide ( - 100) pg/mL Total Protein (6.4-8.9) g/dL Albumin (3.2-5.2) g/dL Globulin (2-4) g/dL Albumin/Globulin Ratio (1-3) Lipase (11.0-82.0) U/L TSH (0.34-5.60) mcIU/mL Urine Color Yellow Urine Appearance Clear Urine pH 7.0 (5-9) Ur Specific [place] 1.018 (1.010-1.030) Urine Protein 3+(>=500 mg/dl) H (Negative) Urine Ketones Negative (Negative) Urine Blood Negative (Negative) Urine Nitrate Negative (Negative) Urine Bilirubin Negative (Negative) Urine Urobilinogen Negative (Negative) Ur Leukocyte Esterase Negative (Negative) Urine WBC (Auto) Trace(0-5/hpf) (Absent) Urine RBC (Auto) 1+(3-5/hpf) H (Absent) Ur Squamous Epith Cells Present H (Absent) Urine Bacteria Absent (Absent) Hyaline Casts Present H (Absent) Urine Glucose 1+(50 mg/dl) H (Negative) Urine Ascorbic Acid * H (Negative) 06/21/17 06/21/17 06/21/17 Range/Units 16:40 16:40 16:40 WBC (3.5-10.8) 10^3/ul RBC (4.0-5.4) 10^6/ul Hgb (14.0-18.0) g/dl Hct (42-52) % MCV (80-94) fL MCH (27-31) pg MCHC (31-36) g/dl RDW (10.5-15) % Plt Count (150-450) 10^3/ul MPV (7.4-10.4) um3 Neut % (Auto) (38-83) % Lymph % (Auto) (25-47) % [place] % (Auto) (1-9) % Eos % (Auto) (0-6) % Baso % (Auto) (0-2) % Absolute Neuts (auto) (1.5-7.7) 10^3/ul Absolute Lymphs (auto) (1.0-4.8) 10^3/ul Absolute Monos (auto) (0-0.8) 10^3/ul Absolute Eos (auto) (0-0.6) 10^3/ul Absolute Basos (auto) (0-0.2) 10^3/ul Absolute Nucleated RBC 10^3/ul Nucleated RBC % INR (Anticoag Therapy) (0.89-1.11) APTT (26.0-36.3) seconds Sodium 135 (133-145) mmol/L Potassium 3.6 (3.5-5.0) mmol/L Chloride 98 L (101-111) mmol/L Carbon Dioxide 30 (22-32) mmol/L Anion Gap 7 (2-11) mmol/L BUN 14 (6-24) mg/dL Creatinine 1.36 H (0.67-1.17) mg/dL Est GFR ( Amer) 66.1 (>60) Est GFR (Non-Af Amer) 51.4 (>60) BUN/Creatinine Ratio 10.3 (8-20) Glucose 271 H (70-100) mg/dL Lactic Acid 1.2 (0.5-2.0) mmol/L Calcium 9.7 (8.6-10.3) mg/dL Magnesium 2.2 (1.9-2.7) mg/dL Total Bilirubin 0.50 (0.2-1.0) mg/dL AST 10 L (13-39) U/L ALT 8 (7-52) U/L Alkaline Phosphatase 85 (34-104) U/L Troponin I 0.01 (<0.04) ng/mL C-Reactive Protein 64.50 H (< 5.00) mg/L B-Natriuretic Peptide 43 ( - 100) pg/mL Total Protein 7.1 (6.4-8.9) g/dL Albumin 3.6 (3.2-5.2) g/dL Globulin 3.5 (2-4) g/dL Albumin/Globulin Ratio 1.0 (1-3) Lipase 647 H (11.0-82.0) U/L TSH 2.04 (0.34-5.60) mcIU/mL Urine Color Urine Appearance Urine pH (5-9) Ur Specific [place] (1.010-1.030) Urine Protein (Negative) Urine Ketones (Negative) Urine Blood (Negative) Urine Nitrate (Negative) Urine Bilirubin (Negative) Urine Urobilinogen (Negative) Ur Leukocyte Esterase (Negative) Urine WBC (Auto) (Absent) Urine RBC (Auto) (Absent) Ur Squamous Epith Cells (Absent) Urine Bacteria (Absent) Hyaline Casts (Absent) Urine Glucose (Negative) Urine Ascorbic Acid (Negative) Assess/Plan/Problems-Billing Assessment: Mr. Matthews is a 71 yo male with a PMH of DM2 with diabetic neuropathy, HTN, and BPH who presented to the ED on 06/21 with complaints of 4 to 5 days of abdominal pain and constipation that appears to be secondary to acute pancreatitis. - Patient Problems (1) Pancreatitis, acute Code(s): K85.90 - ACUTE PANCREATITIS WITHOUT NECROSIS OR INFECTION, UNSP Comment: Etiology unclear. Improving Patient with previous hx of pancreatitis many years ago, also idiopathic. Pt denies ETOH, trauma, recent infection, recent NSAID use Continue IVF, supportive care Advance diet Gallbladder US negative for stones or obstruction (2) Constipation Code(s): K59.00 - CONSTIPATION, UNSPECIFIED Comment: Patient reports no formed BM for almost 1 week. No evidence of obstruction on imaging Positive flatus Continue bowel regimen (3) HTN (hypertension) Code(s): I10 - ESSENTIAL (PRIMARY) HYPERTENSION Comment: Somewhat hypertensive, but improving Continue home atenolol, clonidine, enalapril (4) Type 2 diabetes mellitus Comment: Controlled Hgb A1c 7.2 Hold home metformin and glipizide Patient hypoglycemic this AM, hold morning insulin Continue Lispro SSI Plan for referral to [facility] for further diabetes education (5) BPH (benign prostatic hyperplasia) Code(s): N40.0 - BENIGN PROSTATIC HYPERPLASIA WITHOUT LOWER URINRY TRACT SYMP Comment: Continue home tamsulosin. (6) Diabetic neuropathy Code(s): E11.40 - TYPE 2 DIABETES MELLITUS WITH DIABETIC NEUROPATHY, UNSP Comment: Continue home gabapentin. (7) Hx of gout Code(s): Z87.39 - PERSONAL HISTORY OF DISEASES OF THE MS SYS AND CONN TISS Comment: Continue allopurinol. (8) DVT prophylaxis Comment: SQ heparin Status and Disposition: Inpatient admission. Anticipate LOS>2 days.
[2017-06-23] MEDS ORDERED: Insulin GLARGINE(*) 1 UNITS UNIT SUBCUT ONE (18:00)
[2017-06-23] MEDS: Gabapentin CAP(*) 300 MG PO SCH (21:08)
[2017-06-23] MEDS: cloNIDine TAB* 0.1 MG PO SCH (21:09)
[2017-06-23] MEDS: Tamsulosin CAP* 0.4 MG PO SCH (21:09)
[2017-06-24] MEDS ORDERED: Calcium Carbonate CHEW TAB* 500 MG (TUMS) PO PRN (00:08)
[2017-06-24] MEDS: hydrALAZINE IV* 20 MG/ML VIAL IV PRN ×2 (00:58→20:56)
[2017-06-24] MEDS: Heparin VIAL(*) 5000 UNITS/ML VIAL (FIVE THOUSAND) SUBCUT SCH ×3 (05:31→21:48)
[2017-06-24 05:51] LABS: BUN/Creatinine Ratio 8.1 (8-20); Calcium 9.5 mg/dL (8.6-10.3); EGFR African American 66.6 (>60); EGFR Non-African American 51.8 (>60); Potassium 3.7 mmol/L (3.5-5.0)
[2017-06-24 06:00] LABS: Amylase 116 U/L (29-103); Lipase 414 U/L (11.0-82.0)
--- NOTE | 2017-06-24 06:11 | PN ---
Progress Note - Progress Note Date of Service: 06/24/17 Note: Nursing reports increased epigastric pain tonight in patient admitted w/ pancreatitis whose diet was advanced yesterday. Recheck lipase/amylase. Make NPO. Pain control.
[2017-06-24] MEDS: Insulin LISPRO* 1 UNITS UNIT SUBCUT SCH ×4 (08:31→21:00)
[2017-06-24] MEDS ORDERED: Lidocaine 2% VISCOUS* 15 ML UDC PO ONE (08:41)
[2017-06-24] MEDS ORDERED: Al Hydrox/Mg Hydrox/Simet LIQ* 30 ML UDC PO ONE (08:41)
[2017-06-24 08:43] LABS: C Reactive Protein 37.19 mg/L (< 5.00)
--- NOTE | 2017-06-24 08:51 | PN ---
Subjective Date of Service: 06/24/17 Interval History: Patient seen and examined at bedside. He reports burning in his chest overnight. The patient is unable to differentiate between abdominal pain and burning in chest. This pain was unrelieved by Tums; he has refused morphine, stating he doesn't want to take that kind of medication. The pain is tolerable. He is also very concerned that his "bowels may be locked" as he has not had a formed BM in over a week. Denies fever/chills, dyspnea. Does not feel this is chest pain but "burning" and discomfort with food that he attributes to his constipation. Family History: Unchanged from Admission Social History: Unchanged from Admission Past Medical History: Unchanged from Admission Objective Active Medications: Acetaminophen (Tylenol Tab*) 650 mg PO Q4H PRN PRN Reason: PAIN Last Admin: 06/22/17 13:28 Dose: 650 mg Al Hydrox/Mg Hydrox/Simethicone (Maalox Plus*) 30 ml PO ED ONCE ONE Stop: 06/24/17 08:42 Allopurinol (Zyloprim Tab*) 300 mg PO DAILY [facility] Last Admin: 06/23/17 09:34 Dose: 300 mg Aspirin (Aspirin Low Dose Tab*) 81 mg PO DAILY [facility] Last Admin: 06/23/17 09:33 Dose: 81 mg Atenolol (Tenormin Tab*) 25 mg PO DAILY [facility] Last Admin: 06/23/17 09:33 Dose: 25 mg Calcium Carbonate (Tums*) 500 mg PO Q4H PRN PRN Reason: HEARTBURN Last Admin: 06/24/17 01:00 Dose: 500 mg Clonidine HCl (Catapres Tab*) 0.1 mg PO BEDTIME [facility] Last Admin: 06/23/17 21:09 Dose: 0.1 mg Dextrose (D50w Syringe 50 Ml*) 12.5 gm IV PUSH .FOR FS < 60 - SS PRN PRN Reason: FS < 60 Enalapril Maleate (Vasotec Tab*) 40 mg PO DAILY [facility] Last Admin: 06/23/17 09:33 Dose: 40 mg Gabapentin (Neurontin Cap(*)) 300 mg PO BEDTIME [facility] Last Admin: 06/23/17 21:08 Dose: 300 mg Heparin Sodium (Porcine) (Heparin Vial(*)) 5,000 units SUBCUT Q8HR [facility] Last Admin: 06/24/17 05:31 Dose: 5,000 units Hydralazine HCl (Apresoline Iv*) 10 mg IV Q4H PRN PRN Reason: Systolic >170 Last Admin: 06/24/17 00:58 Dose: 10 mg Lactated Ringer's (Lactated Ringers 1000 Ml Bag*) 1,000 mls @ 125 mls/hr IV PER RATE [facility] Last Admin: 06/24/17 06:18 Dose: 125 mls/hr Insulin Glargine (Lantus(*)) 20 units SUBCUT Q24H [facility] Insulin Human Lispro (Humalog*) 0 units SUBCUT ACHS KLARISSA PRN Reason: Protocol Last Admin: 06/24/17 08:31 Dose: Not Given Lidocaine (Xylocaine 2% Viscous*) 15 ml PO ED ONCE ONE Stop: 06/24/17 08:42 Morphine Sulfate (Morphine Inj (Syringe)*) 2 mg IV Q4H PRN PRN Reason: PAIN - MILD Multivitamins/Minerals (Theragran/Minerals Tab*) 1 tab PO DAILY [facility] Last Admin: 06/23/17 09:33 Dose: 1 tab Omeprazole (Prilosec Cap*) 20 mg PO DAILY@0730 [facility] Last Admin: 06/23/17 07:27 Dose: 20 mg Ondansetron HCl (Zofran Inj*) 4 mg IV Q4H PRN PRN Reason: NAUSEA Last Admin: 06/22/17 13:19 Dose: 4 mg Polyethylene Glycol/Electrolytes (Miralax*) 17 gm PO DAILY [facility] Potassium Chloride (Klor Con Er Tab*) 20 meq PO BID [facility] Last Admin: 06/23/17 21:09 Dose: 20 meq Tamsulosin HCl (Flomax Cap*) 0.4 mg PO BEDTIME [facility] Last Admin: 06/23/17 21:09 Dose: 0.4 mg Vital Signs 06/23/17 06/23/17 06/23/17 15:21 20:00 20:31 Temperature 98.3 F 98.4 F Pulse Rate 76 66 Respiratory 16 17 16 Rate Blood Pressure 157/67 (mmHg) O2 Sat by Pulse 98 99 Oximetry 06/23/17 06/23/17 06/23/17 21:06 21:08 23:08 Temperature Pulse Rate Respiratory 17 16 Rate Blood Pressure 140/80 (mmHg) O2 Sat by Pulse Oximetry 06/23/17 06/23/17 06/24/17 23:38 23:49 03:11 Temperature 98.5 F 98.8 F Pulse Rate 68 64 78 Respiratory 16 16 Rate Blood Pressure 207/75 187/68 189/83 (mmHg) O2 Sat by Pulse 94 99 Oximetry 06/24/17 06/24/17 03:17 07:58 Temperature 98.2 F Pulse Rate 77 Respiratory 14 Rate Blood Pressure 178/82 207/93 (mmHg) O2 Sat by Pulse 100 Oximetry Oxygen Devices in Use Now: None Appearance: Male patient, in recliner chair, appears mildly uncomfortable Eyes: No Scleral Icterus Ears/Nose/Mouth/Throat: Clear Oropharnyx, Mucous Membranes Moist Neck: NL Appearance and Movements; NL JVP Respiratory: Symmetrical Chest Expansion and Respiratory Effort, Clear to Auscultation Abdominal: - - protuberant, normoactive BS, nontender Extremities: - - 1+ BLE edema Neurological: Alert and Oriented x 3, NL Muscle Strength and Tone Lines/Tubes/Other Access: Clean, Dry and Intact Peripheral IV Result Diagrams: 06/23/17 05:20 06/24/17 05:03 Additional Lab and Data: Lab Results 06/21/17 06/21/17 06/21/17 Range/Units 16:02 16:40 16:40 WBC 9.6 (3.5-10.8) 10^3/ul RBC 3.88 L (4.0-5.4) 10^6/ul Hgb 11.8 L (14.0-18.0) g/dl Hct 36 L (42-52) % MCV 91 (80-94) fL MCH 31 (27-31) pg MCHC 33 (31-36) g/dl RDW 14 (10.5-15) % Plt Count 219 (150-450) 10^3/ul MPV 9 (7.4-10.4) um3 Neut % (Auto) 69.8 (38-83) % Lymph % (Auto) 21.2 L (25-47) % Gaines % (Auto) 7.2 (1-9) % Eos % (Auto) 1.1 (0-6) % Baso % (Auto) 0.7 (0-2) % Absolute Neuts (auto) 6.7 (1.5-7.7) 10^3/ul Absolute Lymphs (auto) 2.0 (1.0-4.8) 10^3/ul Absolute Monos (auto) 0.7 (0-0.8) 10^3/ul Absolute Eos (auto) 0.1 (0-0.6) 10^3/ul Absolute Basos (auto) 0.1 (0-0.2) 10^3/ul Absolute Nucleated RBC 0.01 10^3/ul Nucleated RBC % 0.1 INR (Anticoag Therapy) 0.98 (0.89-1.11) APTT 31.2 (26.0-36.3) seconds Sodium (133-145) mmol/L Potassium (3.5-5.0) mmol/L Chloride (101-111) mmol/L Carbon Dioxide (22-32) mmol/L Anion Gap (2-11) mmol/L BUN (6-24) mg/dL Creatinine (0.67-1.17) mg/dL Est GFR ( Amer) (>60) Est GFR (Non-Af Amer) (>60) BUN/Creatinine Ratio (8-20) Glucose (70-100) mg/dL Lactic Acid (0.5-2.0) mmol/L Calcium (8.6-10.3) mg/dL Magnesium (1.9-2.7) mg/dL Total Bilirubin (0.2-1.0) mg/dL AST (13-39) U/L ALT (7-52) U/L Alkaline Phosphatase (34-104) U/L Troponin I (<0.04) ng/mL C-Reactive Protein (< 5.00) mg/L B-Natriuretic Peptide ( - 100) pg/mL Total Protein (6.4-8.9) g/dL Albumin (3.2-5.2) g/dL Globulin (2-4) g/dL Albumin/Globulin Ratio (1-3) Lipase (11.0-82.0) U/L TSH (0.34-5.60) mcIU/mL Urine Color Yellow Urine Appearance Clear Urine pH 7.0 (5-9) Ur Specific [place] 1.018 (1.010-1.030) Urine Protein 3+(>=500 mg/dl) H (Negative) Urine Ketones Negative (Negative) Urine Blood Negative (Negative) Urine Nitrate Negative (Negative) Urine Bilirubin Negative (Negative) Urine Urobilinogen Negative (Negative) Ur Leukocyte Esterase Negative (Negative) Urine WBC (Auto) Trace(0-5/hpf) (Absent) Urine RBC (Auto) 1+(3-5/hpf) H (Absent) Ur Squamous Epith Cells Present H (Absent) Urine Bacteria Absent (Absent) Hyaline Casts Present H (Absent) Urine Glucose 1+(50 mg/dl) H (Negative) Urine Ascorbic Acid * H (Negative) 06/21/17 06/21/17 06/21/17 Range/Units 16:40 16:40 16:40 WBC (3.5-10.8) 10^3/ul RBC (4.0-5.4) 10^6/ul Hgb (14.0-18.0) g/dl Hct (42-52) % MCV (80-94) fL MCH (27-31) pg MCHC (31-36) g/dl RDW (10.5-15) % Plt Count (150-450) 10^3/ul MPV (7.4-10.4) um3 Neut % (Auto) (38-83) % Lymph % (Auto) (25-47) % Gaines % (Auto) (1-9) % Eos % (Auto) (0-6) % Baso % (Auto) (0-2) % Absolute Neuts (auto) (1.5-7.7) 10^3/ul Absolute Lymphs (auto) (1.0-4.8) 10^3/ul Absolute Monos (auto) (0-0.8) 10^3/ul Absolute Eos (auto) (0-0.6) 10^3/ul Absolute Basos (auto) (0-0.2) 10^3/ul Absolute Nucleated RBC 10^3/ul Nucleated RBC % INR (Anticoag Therapy) (0.89-1.11) APTT (26.0-36.3) seconds Sodium 135 (133-145) mmol/L Potassium 3.6 (3.5-5.0) mmol/L Chloride 98 L (101-111) mmol/L Carbon Dioxide 30 (22-32) mmol/L Anion Gap 7 (2-11) mmol/L BUN 14 (6-24) mg/dL Creatinine 1.36 H (0.67-1.17) mg/dL Est GFR ( Amer) 66.1 (>60) Est GFR (Non-Af Amer) 51.4 (>60) BUN/Creatinine Ratio 10.3 (8-20) Glucose 271 H (70-100) mg/dL Lactic Acid 1.2 (0.5-2.0) mmol/L Calcium 9.7 (8.6-10.3) mg/dL Magnesium 2.2 (1.9-2.7) mg/dL Total Bilirubin 0.50 (0.2-1.0) mg/dL AST 10 L (13-39) U/L ALT 8 (7-52) U/L Alkaline Phosphatase 85 (34-104) U/L Troponin I 0.01 (<0.04) ng/mL C-Reactive Protein 64.50 H (< 5.00) mg/L B-Natriuretic Peptide 43 ( - 100) pg/mL Total Protein 7.1 (6.4-8.9) g/dL Albumin 3.6 (3.2-5.2) g/dL Globulin 3.5 (2-4) g/dL Albumin/Globulin Ratio 1.0 (1-3) Lipase 647 H (11.0-82.0) U/L TSH 2.04 (0.34-5.60) mcIU/mL Urine Color Urine Appearance Urine pH (5-9) Ur Specific [place] (1.010-1.030) Urine Protein (Negative) Urine Ketones (Negative) Urine Blood (Negative) Urine Nitrate (Negative) Urine Bilirubin (Negative) Urine Urobilinogen (Negative) Ur Leukocyte Esterase (Negative) Urine WBC (Auto) (Absent) Urine RBC (Auto) (Absent) Ur Squamous Epith Cells (Absent) Urine Bacteria (Absent) Hyaline Casts (Absent) Urine Glucose (Negative) Urine Ascorbic Acid (Negative) Assess/Plan/Problems-Billing Assessment: Mr. Matthews is a 71 yo male with a PMH of DM2 with diabetic neuropathy, HTN, and BPH who presented to the ED on 06/21 with complaints of 4 to 5 days of abdominal pain and constipation that appears to be secondary to acute pancreatitis. - Patient Problems (1) Pancreatitis, acute Code(s): K85.90 - ACUTE PANCREATITIS WITHOUT NECROSIS OR INFECTION, UNSP Comment: Etiology unclear, appears idiopathic Diet advanced, patient had persistent c/o abd pain and burning sensation NPO for now, ? if pain is r/t pancreas or secondary to constipation/reflux Patient with previous hx of pancreatitis many years ago, also idiopathic. Pt denies ETOH, trauma, recent infection, recent NSAID use Continue IVF, supportive care Gallbladder US negative for stones or obstruction (2) Constipation Code(s): K59.00 - CONSTIPATION, UNSPECIFIED Comment: Patient reports no formed BM for >1 week. Recheck KUB Positive flatus Continue bowel regimen (3) HTN (hypertension) Code(s): I10 - ESSENTIAL (PRIMARY) HYPERTENSION Comment: Hypertensive Suspect pain is contributing Will decrease IVF rate Continue home atenolol, clonidine, enalapril (4) Type 2 diabetes mellitus Comment: BG variable Hgb A1c 7.2 Hold home metformin and glipizide Continue reduced dose Lantus Continue Lispro SSI Plan for referral to [facility] for further diabetes education (5) BPH (benign prostatic hyperplasia) Code(s): N40.0 - BENIGN PROSTATIC HYPERPLASIA WITHOUT LOWER URINRY TRACT SYMP Comment: Continue home tamsulosin. (6) Diabetic neuropathy Code(s): E11.40 - TYPE 2 DIABETES MELLITUS WITH DIABETIC NEUROPATHY, UNSP Comment: Continue home gabapentin. (7) Hx of gout Code(s): Z87.39 - PERSONAL HISTORY OF DISEASES OF THE MS SYS AND CONN TISS Comment: Continue allopurinol. (8) DVT prophylaxis Comment: SQ heparin Status and Disposition: Inpatient admission. Anticipate LOS>2 days.
[2017-06-24 09:20] LABS: HDL Cholesterol 35.5 mg/dL
[2017-06-24] MEDS: Omeprazole CAP* 20 MG PO SCH (09:52)
[2017-06-24] MEDS: Enalapril TAB* 20 MG PO SCH (09:52)
[2017-06-24] MEDS: Atenolol TAB* 25 MG PO SCH (09:52)
[2017-06-24] MEDS: Allopurinol TAB* 300 MG PO SCH (09:53)
[2017-06-24] MEDS: Aspirin Low Dose CHEW TAB* 81 MG PO SCH (09:54)
[2017-06-24] MEDS: Multivitamins/Minerals TAB PO SCH (09:54)
[2017-06-24] MEDS: Insulin GLARGINE(*) 1 UNITS UNIT SUBCUT SCH (09:55)
[2017-06-24] MEDS: Potassium Chlor TAB* 20 MEQ TAB.ER PO SCH ×2 (09:56→20:54)
[2017-06-24] MEDS: Polyethylene Glycol 3350* 17 GM PACKET PO SCH (09:58)
--- NOTE | 2017-06-24 10:05 | RAD ---
INDICATION: No regular bowel movement x1 week COMPARISON: Similar examination dated June 22, 2017 TECHNIQUE: 3 views the abdomen were obtained. FINDINGS: There are no acute bony or soft tissue abnormalities. The bowel gas pattern is normal. There is a moderate amount of stool overlying the renal shadows. There are no obvious coarse calcifications overlying the expected location of the bilateral collecting systems or ureters. IMPRESSION:Normal KUB.
[2017-06-24] MEDS: Sucralfate TAB* 1 GM PO SCH (16:26)
--- NOTE | 2017-06-24 16:59 | PN ---
Hospitalist Progress Note Patient NPO for the morning. He persistently states that his discomfort is not abdominal pain but rather feels like reflux. This feeling improved, following a GI cocktail, making it less likely to be pancreatitis. He stated that he feels hungry and would like to try food. Nutrition consult requested to guide food choices. Patient advised to eat a quarter of his meal at a time and to break up his meals into small meals throughout the day. Follow-up KUB shows no evidence of obstruction, though patient is very concerned that he has not had a formed bowel movement. Continue Miralax. Will order Carafate prior to meal time to help with feelings of reflux. Patient is aware that he should only eat small portions and sit upright following meals. Discussed with patient the need to maintain NPO status if discomfort persists. 35 additional minutes spent in consultation with patient.
[2017-06-24] MEDS ORDERED: Insulin GLARGINE(*) 1 UNITS UNIT SUBCUT ONE (20:00)
[2017-06-24] MEDS: Tamsulosin CAP* 0.4 MG PO SCH (20:54)
[2017-06-24] MEDS: Gabapentin CAP(*) 300 MG PO SCH (20:55)
[2017-06-24] MEDS: cloNIDine TAB* 0.1 MG PO SCH (20:55)
[2017-06-25] MEDS: hydrALAZINE IV* 20 MG/ML VIAL IV PRN (00:48)
[2017-06-25] MEDS: Heparin VIAL(*) 5000 UNITS/ML VIAL (FIVE THOUSAND) SUBCUT SCH (05:33)
[2017-06-25] MEDS: Acetaminophen TAB* 325 MG PO PRN (05:44)
[2017-06-25 05:56] LABS: Hematocrit 33 % (42-52); Hemoglobin 11.3 g/dl (14.0-18.0); Mean Corpuscular HGB Conc 34 g/dl (31-36); Mean Corpuscular Hemoglobin 31 pg (27-31); Mean Corpuscular Volume 91 fL (80-94); Mean Platelet Volume 9 um3 (7.4-10.4); Red Blood Count 3.62 10^6/ul (4.0-5.4); Red Cell Distribution Width 14 % (10.5-15); White Blood Count 8.1 10^3/ul (3.5-10.8)
[2017-06-25 06:27] LABS: BUN/Creatinine Ratio 8.9 (8-20); C Reactive Protein 31.51 mg/L (< 5.00); Calcium 9.3 mg/dL (8.6-10.3); EGFR African American 73.5 (>60); EGFR Non-African American 57.1 (>60); Potassium 3.9 mmol/L (3.5-5.0)
[2017-06-25] MEDS ORDERED: amLODIPine TAB* 5 MG PO SCH (07:00)
[2017-06-25] MEDS: Omeprazole CAP* 20 MG PO SCH (07:48)
[2017-06-25] MEDS: Sucralfate TAB* 1 GM PO SCH ×2 (07:48→12:24)
[2017-06-25 07:59] VITALS: BP 167/73
[2017-06-25] MEDS: Potassium Chlor TAB* 20 MEQ TAB.ER PO SCH (08:46)
[2017-06-25] MEDS: Multivitamins/Minerals TAB PO SCH (08:47)
[2017-06-25] MEDS: Aspirin Low Dose CHEW TAB* 81 MG PO SCH (08:47)
[2017-06-25] MEDS: Enalapril TAB* 20 MG PO SCH (08:47)
[2017-06-25] MEDS: Allopurinol TAB* 300 MG PO SCH (08:47)
[2017-06-25] MEDS: Atenolol TAB* 25 MG PO SCH (08:47)
[2017-06-25] MEDS: Insulin GLARGINE(*) 1 UNITS UNIT SUBCUT SCH (08:47)
[2017-06-25] MEDS: Insulin LISPRO* 1 UNITS UNIT SUBCUT SCH ×2 (08:48→12:24)
[2017-06-25] MEDS: Polyethylene Glycol 3350* 17 GM PACKET PO SCH (08:48)
[2017-06-25] MEDS ORDERED: Indapamide TAB* 2.5 MG PO SCH (09:00)
[2017-06-25] MEDS ORDERED: Bumetanide TAB* 1 MG PO SCH (09:00)
--- NOTE | 2017-06-25 10:03 | DCNOTE ---
Subjective Date of Service: 06/25/17 Interval History: Patient seen and examined at bedside. Tolerated dinner and breakfast without incident. Reports improvement in chest burning with Carafate - no further episodes Stool beginning to have more form. Denies fever/chills, CP, SOB or other complaint. Family History: Unchanged from Admission Social History: Unchanged from Admission Past Medical History: Unchanged from Admission Objective Active Medications: Acetaminophen (Tylenol Tab*) 650 mg PO Q4H PRN PRN Reason: PAIN Last Admin: 06/25/17 05:44 Dose: 650 mg Allopurinol (Zyloprim Tab*) 300 mg PO DAILY [facility] Last Admin: 06/25/17 08:47 Dose: 300 mg Aspirin (Aspirin Low Dose Tab*) 81 mg PO DAILY [facility] Last Admin: 06/25/17 08:47 Dose: 81 mg Atenolol (Tenormin Tab*) 25 mg PO DAILY [facility] Last Admin: 06/25/17 08:47 Dose: 25 mg Bumetanide (Bumex Tab*) 1 mg PO DAILY [facility] Last Admin: 06/25/17 08:53 Dose: 1 mg Calcium Carbonate (Tums*) 500 mg PO Q4H PRN PRN Reason: HEARTBURN Last Admin: 06/24/17 01:00 Dose: 500 mg Clonidine HCl (Catapres Tab*) 0.1 mg PO BEDTIME [facility] Last Admin: 06/24/17 20:55 Dose: 0.1 mg Dextrose (D50w Syringe 50 Ml*) 12.5 gm IV PUSH .FOR FS < 60 - SS PRN PRN Reason: FS < 60 Enalapril Maleate (Vasotec Tab*) 40 mg PO DAILY [facility] Last Admin: 06/25/17 08:47 Dose: 40 mg Gabapentin (Neurontin Cap(*)) 300 mg PO BEDTIME [facility] Last Admin: 06/24/17 20:55 Dose: 300 mg Heparin Sodium (Porcine) (Heparin Vial(*)) 5,000 units SUBCUT Q8HR [facility] Last Admin: 06/25/17 05:33 Dose: 5,000 units Hydralazine HCl (Apresoline Iv*) 10 mg IV Q4H PRN PRN Reason: Systolic >170 Last Admin: 06/25/17 00:48 Dose: 10 mg Indapamide (Lozol Tab*) 5 mg PO DAILY [facility] Last Admin: 06/25/17 08:53 Dose: 5 mg Insulin Glargine (Lantus(*)) 20 units SUBCUT Q24H [facility] Last Admin: 06/25/17 08:47 Dose: 20 units Insulin Human Lispro (Humalog*) 0 units SUBCUT ACHS KLARISSA PRN Reason: Protocol Last Admin: 06/25/17 08:48 Dose: 3 unit Morphine Sulfate (Morphine Inj (Syringe)*) 2 mg IV Q4H PRN PRN Reason: PAIN - MILD Multivitamins/Minerals (Theragran/Minerals Tab*) 1 tab PO DAILY [facility] Last Admin: 06/25/17 08:47 Dose: 1 tab Omeprazole (Prilosec Cap*) 20 mg PO DAILY@0730 [facility] Last Admin: 06/25/17 07:48 Dose: 20 mg Ondansetron HCl (Zofran Inj*) 4 mg IV Q4H PRN PRN Reason: NAUSEA Last Admin: 06/22/17 13:19 Dose: 4 mg Polyethylene Glycol/Electrolytes (Miralax*) 17 gm PO DAILY [facility] Last Admin: 06/25/17 08:48 Dose: 17 gm Potassium Chloride (Klor Con Er Tab*) 20 meq PO BID [facility] Last Admin: 06/25/17 08:46 Dose: 20 meq Sucralfate (Carafate*) 1 gm PO AC [facility] Last Admin: 06/25/17 07:48 Dose: 1 gm Tamsulosin HCl (Flomax Cap*) 0.4 mg PO BEDTIME [facility] Last Admin: 06/24/17 20:54 Dose: 0.4 mg Vital Signs 06/24/17 06/24/17 06/24/17 12:53 15:29 20:00 Temperature 98.2 F 97.5 F Pulse Rate 63 64 Respiratory 15 20 18 Rate Blood Pressure 199/79 177/79 (mmHg) O2 Sat by Pulse 82 100 Oximetry 06/24/17 06/24/17 06/24/17 20:09 20:39 20:55 Temperature 98.3 F Pulse Rate 71 Respiratory 20 17 Rate Blood Pressure 186/78 188/78 (mmHg) O2 Sat by Pulse 98 Oximetry 06/24/17 06/25/17 06/25/17 22:55 00:13 00:30 Temperature 98.3 F Pulse Rate 63 Respiratory 17 16 Rate Blood Pressure 176/65 (mmHg) O2 Sat by Pulse 100 Oximetry 06/25/17 06/25/17 06/25/17 04:08 05:40 07:59 Temperature 98.5 F 98.3 F Pulse Rate 81 72 Respiratory 16 17 Rate Blood Pressure 178/83 184/84 167/73 (mmHg) O2 Sat by Pulse 100 98 Oximetry Oxygen Devices in Use Now: None Appearance: Male patient, OOB to chair, pleasant, conversive, NAD Eyes: No Scleral Icterus Ears/Nose/Mouth/Throat: Clear Oropharnyx, Mucous Membranes Moist Neck: NL Appearance and Movements; NL JVP Respiratory: Symmetrical Chest Expansion and Respiratory Effort, Clear to Auscultation Cardiovascular: NL Sounds; No Murmurs; No JVD, RRR Abdominal: NL Sounds; No Tenderness; No Distention Neurological: Alert and Oriented x 3 Lines/Tubes/Other Access: Clean, Dry and Intact Peripheral IV Nutrition: Taking PO's Result Diagrams: 06/25/17 05:32 06/25/17 05:31 Additional Lab and Data: Lab Results 06/21/17 06/21/17 06/21/17 Range/Units 16:02 16:40 16:40 WBC 9.6 (3.5-10.8) 10^3/ul RBC 3.88 L (4.0-5.4) 10^6/ul Hgb 11.8 L (14.0-18.0) g/dl Hct 36 L (42-52) % MCV 91 (80-94) fL MCH 31 (27-31) pg MCHC 33 (31-36) g/dl RDW 14 (10.5-15) % Plt Count 219 (150-450) 10^3/ul MPV 9 (7.4-10.4) um3 Neut % (Auto) 69.8 (38-83) % Lymph % (Auto) 21.2 L (25-47) % Pepin % (Auto) 7.2 (1-9) % Eos % (Auto) 1.1 (0-6) % Baso % (Auto) 0.7 (0-2) % Absolute Neuts (auto) 6.7 (1.5-7.7) 10^3/ul Absolute Lymphs (auto) 2.0 (1.0-4.8) 10^3/ul Absolute Monos (auto) 0.7 (0-0.8) 10^3/ul Absolute Eos (auto) 0.1 (0-0.6) 10^3/ul Absolute Basos (auto) 0.1 (0-0.2) 10^3/ul Absolute Nucleated RBC 0.01 10^3/ul Nucleated RBC % 0.1 INR (Anticoag Therapy) 0.98 (0.89-1.11) APTT 31.2 (26.0-36.3) seconds Sodium (133-145) mmol/L Potassium (3.5-5.0) mmol/L Chloride (101-111) mmol/L Carbon Dioxide (22-32) mmol/L Anion Gap (2-11) mmol/L BUN (6-24) mg/dL Creatinine (0.67-1.17) mg/dL Est GFR ( Amer) (>60) Est GFR (Non-Af Amer) (>60) BUN/Creatinine Ratio (8-20) Glucose (70-100) mg/dL Lactic Acid (0.5-2.0) mmol/L Calcium (8.6-10.3) mg/dL Magnesium (1.9-2.7) mg/dL Total Bilirubin (0.2-1.0) mg/dL AST (13-39) U/L ALT (7-52) U/L Alkaline Phosphatase (34-104) U/L Troponin I (<0.04) ng/mL C-Reactive Protein (< 5.00) mg/L B-Natriuretic Peptide ( - 100) pg/mL Total Protein (6.4-8.9) g/dL Albumin (3.2-5.2) g/dL Globulin (2-4) g/dL Albumin/Globulin Ratio (1-3) Lipase (11.0-82.0) U/L TSH (0.34-5.60) mcIU/mL Urine Color Yellow Urine Appearance Clear Urine pH 7.0 (5-9) Ur Specific [place] 1.018 (1.010-1.030) Urine Protein 3+(>=500 mg/dl) H (Negative) Urine Ketones Negative (Negative) Urine Blood Negative (Negative) Urine Nitrate Negative (Negative) Urine Bilirubin Negative (Negative) Urine Urobilinogen Negative (Negative) Ur Leukocyte Esterase Negative (Negative) Urine WBC (Auto) Trace(0-5/hpf) (Absent) Urine RBC (Auto) 1+(3-5/hpf) H (Absent) Ur Squamous Epith Cells Present H (Absent) Urine Bacteria Absent (Absent) Hyaline Casts Present H (Absent) Urine Glucose 1+(50 mg/dl) H (Negative) Urine Ascorbic Acid * H (Negative) 06/21/17 06/21/17 06/21/17 Range/Units 16:40 16:40 16:40 WBC (3.5-10.8) 10^3/ul RBC (4.0-5.4) 10^6/ul Hgb (14.0-18.0) g/dl Hct (42-52) % MCV (80-94) fL MCH (27-31) pg MCHC (31-36) g/dl RDW (10.5-15) % Plt Count (150-450) 10^3/ul MPV (7.4-10.4) um3 Neut % (Auto) (38-83) % Lymph % (Auto) (25-47) % Pepin % (Auto) (1-9) % Eos % (Auto) (0-6) % Baso % (Auto) (0-2) % Absolute Neuts (auto) (1.5-7.7) 10^3/ul Absolute Lymphs (auto) (1.0-4.8) 10^3/ul Absolute Monos (auto) (0-0.8) 10^3/ul Absolute Eos (auto) (0-0.6) 10^3/ul Absolute Basos (auto) (0-0.2) 10^3/ul Absolute Nucleated RBC 10^3/ul Nucleated RBC % INR (Anticoag Therapy) (0.89-1.11) APTT (26.0-36.3) seconds Sodium 135 (133-145) mmol/L Potassium 3.6 (3.5-5.0) mmol/L Chloride 98 L (101-111) mmol/L Carbon Dioxide 30 (22-32) mmol/L Anion Gap 7 (2-11) mmol/L BUN 14 (6-24) mg/dL Creatinine 1.36 H (0.67-1.17) mg/dL Est GFR ( Amer) 66.1 (>60) Est GFR (Non-Af Amer) 51.4 (>60) BUN/Creatinine Ratio 10.3 (8-20) Glucose 271 H (70-100) mg/dL Lactic Acid 1.2 (0.5-2.0) mmol/L Calcium 9.7 (8.6-10.3) mg/dL Magnesium 2.2 (1.9-2.7) mg/dL Total Bilirubin 0.50 (0.2-1.0) mg/dL AST 10 L (13-39) U/L ALT 8 (7-52) U/L Alkaline Phosphatase 85 (34-104) U/L Troponin I 0.01 (<0.04) ng/mL C-Reactive Protein 64.50 H (< 5.00) mg/L B-Natriuretic Peptide 43 ( - 100) pg/mL Total Protein 7.1 (6.4-8.9) g/dL Albumin 3.6 (3.2-5.2) g/dL Globulin 3.5 (2-4) g/dL Albumin/Globulin Ratio 1.0 (1-3) Lipase 647 H (11.0-82.0) U/L TSH 2.04 (0.34-5.60) mcIU/mL Urine Color Urine Appearance Urine pH (5-9) Ur Specific [place] (1.010-1.030) Urine Protein (Negative) Urine Ketones (Negative) Urine Blood (Negative) Urine Nitrate (Negative) Urine Bilirubin (Negative) Urine Urobilinogen (Negative) Ur Leukocyte Esterase (Negative) Urine WBC (Auto) (Absent) Urine RBC (Auto) (Absent) Ur Squamous Epith Cells (Absent) Urine Bacteria (Absent) Hyaline Casts (Absent) Urine Glucose (Negative) Urine Ascorbic Acid (Negative) Assess/Plan/Problems-Billing Assessment: Mr. Matthews is a 71 yo male with a PMH of DM2 with diabetic neuropathy, HTN, and BPH who presented to the ED on 06/21 with complaints of 4 to 5 days of abdominal pain and constipation that appears to be secondary to acute pancreatitis. - Patient Problems (1) Pancreatitis, acute Code(s): K85.90 - ACUTE PANCREATITIS WITHOUT NECROSIS OR INFECTION, UNSP Comment: Etiology unclear, appears idiopathic Tolerating diet Patient with previous hx of pancreatitis many years ago, also idiopathic. Pt denies ETOH, trauma, recent infection, recent NSAID use Gallbladder US negative for stones or obstruction (2) Dyspepsia Code(s): R10.13 - EPIGASTRIC PAIN Comment: Patient w/persistent c/o dyspepsia No known hx of ulcer Refractory to Tums and home omeprazole Improved with Carafate Patient advised to follow-up with gastroenterology as an outpatient for further eval. Rx sent for Carafate. (3) Constipation Code(s): K59.00 - CONSTIPATION, UNSPECIFIED Comment: Improving, BM now having some form Suspect secondary to pancreatitis and diet KUB negative for s/s obstruction Positive flatus Continue bowel regimen (4) HTN (hypertension) Code(s): I10 - ESSENTIAL (PRIMARY) HYPERTENSION Comment: Hypertensive, improved this AM Stop IVF Continue home atenolol, clonidine, enalapril. Resume indapamide, bumetanide. (5) Type 2 diabetes mellitus Comment: BG variable Hgb A1c 7.2 Resume home metformin and glipizide upon discharge Will discharge on reduced Lantus until follow-up with PCP Plan for referral to [facility] for further diabetes education (6) BPH (benign prostatic hyperplasia) Code(s): N40.0 - BENIGN PROSTATIC HYPERPLASIA WITHOUT LOWER URINRY TRACT SYMP Comment: Continue home tamsulosin. (7) Diabetic neuropathy Code(s): E11.40 - TYPE 2 DIABETES MELLITUS WITH DIABETIC NEUROPATHY, UNSP Comment: Continue home gabapentin. (8) Hx of gout Code(s): Z87.39 - PERSONAL HISTORY OF DISEASES OF THE MS SYS AND CONN TISS Comment: Continue allopurinol. (9) DVT prophylaxis Comment: SQ heparin Status and Disposition: Inpatient admission. Dc to home.
--- NOTE | 2017-06-26 05:06 | DS ---
CC: Dr. Ana Foster * MEDICINE DISCHARGE SUMMARY: DATE OF ADMISSION: 06/21/17 DATE OF DISCHARGE: 06/25/17 PROVIDER: Linda Mcelroy NP ATTENDING PHYSICIAN: Erlin Laughlin MD *(dictated by Linda Mcelroy NP). PRIMARY CARE PROVIDER: Dr. Ana Foster. PRIMARY DISCHARGE DIAGNOSES: 1. Idiopathic pancreatitis. 2. Dyspepsia. 3. Constipation. SECONDARY DISCHARGE DIAGNOSES: 1. Type 2 diabetes. 2. Hypertension. 3. Gout. 4. History of pancreatitis several years ago. 5. Diabetic neuropathy. 6. Benign prostatic hypertrophy. MEDICATIONS AT DISCHARGE: 1. Omeprazole 20 mg daily. 2. Multivitamin 1 tab daily. 3. Bumetanide 1 mg daily. 4. Ascorbic acid 1000 mg daily. 5. Metformin 1000 mg b.i.d. 6. Clonidine 0.1 mg at bedtime. 7. Potassium 10 mEq b.i.d. 8. Garlic 1000 mg daily. 9. Gabapentin 300 mg at bedtime. 10. Ferrous gluconate 480 mg daily. 11. Enalapril 40 mg daily. 12. Atenolol 25 mg daily. 13. Aspirin 81 mg daily. 14. Allopurinol 300 mg daily. 15. Tamsulosin 0.4 mg at bedtime. 16. Glipizide 5 mg b.i.d. 17. Indapamide 5 mg daily. 18. Carafate 1 g prior to meals, this is a new medication. 19. Insulin glargine 30 units q.a.m., this is a new dosing at the time of discharge, down from previous 74 units. 20. MiraLAX 17 g daily p.r.n., this is a new medication. HOSPITAL COURSE OF STAY: For full details, please refer to the H and P provided by Dr. Ojeda on 06/21/17. In summary, Mr. Matthews is a 71-year-old male, who endorsed a history of 4 to 5 days of abdominal pain prior to admission. He describes having pain in the epigastric area and spread over his chest, which he describes as a burning discomfort. He initially had more severe pain in the left lateral portion of the abdomen and low in the pelvis. He had also reported constipation. Patient has been having liquid stools but no regular bowel movement for several days. During his ER evaluation, patient was noted to have an elevated lipase of 647 as well as an edematous appearing pancreas with peripancreatic stranding consistent with acute pancreatitis noted on the CT of the abdomen and pelvis. He was admitted and started on clear liquids and received IV hydration. Gallbladder ultrasound was done, which was negative for cholelithiasis, gallbladder wall thickening, or pericholecystic fluid. In regards to patient's pancreatitis, he did relatively well with clear liquids and quickly began asking for food. However, when he was started on more solid foods, patient quickly began to complain of chest burning and discomfort again. This was initially thought to be secondary to pancreatitis, however, it was noted that the patient's lipase was improving, his CRP was dropping, and he was not febrile. He was made n.p.o. and then reinitiated with food again, but still had difficulty with chest discomfort. The patient is already on omeprazole and, at one point, tried Tums and stated that this made his chest burn more. The patient did respond well to our GI cocktail, which consists of viscous lidocaine and Maalox Plus. Patient was then started on Carafate prior to meals with good effect. He reported resolution of his chest discomfort. We discussed with the patient that he may have concerns for peptic ulcer disease, and he states that he has never had a GI consult or endoscopy. Patient was referred to his PCP to have an outpatient GI referral and potential endoscopy to evaluate the source of this discomfort, given that he is already on omeprazole and is now requiring Carafate for resolution of his symptoms. In regards to the patient's constipation, this started to improve over the course of his stay. He was given 1 dose of Lactulose as well as MiraLAX. The patient continued with liquid bowel movements and had 2 KUBs over the course of his stay, which were both negative for obstruction. It was felt that once the patient started taking in solid foods again that he would have more formed stools, and there was evidence of this prior to discharge. The patient stated that his stools were becoming more formed once he was tolerating his low-fat diet. Patient also had issues of hypertension here in the hospital, though some of his home medications were held. He was also receiving continuous IV fluids for treatment of his pancreatitis. Prior to discharge, we resumed all of his home meds, and his blood pressure showed improved control. I did advise the patient to follow up on his blood pressure readings and medication with his PCP as well. In regards to his type 2 diabetes, patient states that his hemoglobin A1c in 2016 was 5.8 and was now noted to be 7.2 on 06/21/17. Patient was referred to [facility] for outpatient diabetes education. Prior to discharge patient is tolerating low fat diet. He denies any further chest discomfort or burning. He reports improvement in his stools and feels ready for discharge to home. CONCERNS AT DISCHARGE: Mr. Matthews is discharged to home on 06/25/17, he should follow up with Dr. Foster on 06/29/17 as scheduled. OUTPATIENT FOLLOWUP NEEDS: The patient has been advised to keep a record of his morning and evening blood sugars in order to continue titration of his Lantus as that has been reduced from 74 units to 30 units secondary to hypoglycemia here in the hospital. Patient should also have an outpatient Gastroenterology referral for investigation of persistent discomfort and concern for potential peptic ulcer disease. Patient has been advised to eat small meals throughout the day. He should also follow up with [facility] if he so chooses for further diabetes education. DIET: Low fat diet. Patient advised to eat several small meals instead of 3 larger meals throughout the day. ACTIVITY: As tolerated. CONDITION: Stable. DISPOSITION: To home. TIME SPENT: Time spent on this discharge was approximately 45 minutes. Again, this is only a brief summary of the patient's hospital course of stay. For full details, please refer to the full medical record. If you have any further questions or need further assistance, please feel free to contact me at [phone]. LINDA MCELROY NP [id number]/[facility] #: [id number] RENNY
== END 2017-06-25 12:25 | disposition home or self-care (01) | DRG 439 ==
LOC: ED 14:09 → MED 20:20 → OBSVTOIN 06-22 10:30
PROVIDERS: ADMIT Hospitalist; ATTEND Internal Medicine
DX: K85.00 Idiopathic acute pancreatitis without necrosis or infection (principal); E11.40 Type 2 diabetes mellitus with diabetic neuropathy, unspecified; E11.649 Type 2 diabetes mellitus with hypoglycemia without coma; I10 Essential (primary) hypertension; M10.9 Gout, unspecified; N40.0 Benign prostatic hyperplasia without lower urinary tract symptoms; Z96.642 Presence of left artificial hip joint; Z96.651 Presence of right artificial knee joint; K59.00 Constipation, unspecified; R60.0 Localized edema; E66.9 Obesity, unspecified; Z66 Do not resuscitate; K21.9 Gastro-esophageal reflux disease without esophagitis; R10.13 Epigastric pain; Z79.82 Long term (current) use of aspirin; Z68.42 Body mass index [BMI] 45.0-49.9, adult; Z88.6 Allergy status to analgesic agent; Z88.5 Allergy status to narcotic agent; Z82.49 Family history of ischemic heart disease and other diseases of the circulatory system; Z87.891 Personal history of nicotine dependence; Z79.4 Long term (current) use of insulin
CPT/HCPCS: 36415; 71275; 74000; 74177; 76705; 80048; 80053; 80061; 81003; 81015; 82150; 83036; 83605; 83690; 83735; 83880; 84443; 84484; 85025; 85027; 85610; 85730; 86140; 93005; A9270-GY; G0378; J0360; J1644; J2405; Q9967